=== PATIENT | female | born 1985 | race Two or more races ===

== ENCOUNTER → 2020-10-22 13:13 | Outpatient (BNVA) | payer OTHER, SELFPAY | PROVIDERS: Visit Provider Advanced Practice Midwife | DX: Z30.42 Encounter for surveillance of injectable contraceptive (principal) | CPT/HCPCS: 99211; J1050 ==

== ENCOUNTER 2020-10-23 08:00 | Outpatient (REF) | payer OTHER, SELFPAY ==
[2020-10-23 13:03] LABS: TSH reflex Free T4 0.36 mIU/mL (0.32-4.0)
== END 2020-10-23 08:01 | disposition home or self-care (01) ==
LOC: HO.LAB 08:00
PROVIDERS: Visit Provider Internal Medicine
DX: E03.9 Hypothyroidism, unspecified (principal)
CPT/HCPCS: 84443

== ENCOUNTER → 2020-10-23 11:50 | Outpatient (BNVA) | payer OTHER, SELFPAY | PROVIDERS: Visit Provider Obstetrics & Gynecology | DX: Z01.818 Encounter for other preprocedural examination (principal); E03.9 Hypothyroidism, unspecified; Z87.891 Personal history of nicotine dependence | CPT/HCPCS: 99212 ==

== ENCOUNTER 2020-11-01 06:07 | Day surgery (SDC) | payer OTHER, SELFPAY ==
[2020-10-26 15:02] VITALS: BMI 23.2
--- NOTE | 2020-10-31 10:45 | P.CONAN_ITS ---
Documented by User: Barbara Batista 10/31/20 10:47 HPI - Anesthesia Eval Consult details Narrative: 35yo F for Salpingectomy Laproscopic PMFSH Past Medical History Medical History (Updated 11/01/20 @ 07:27 by Jada Gaspar) Arthritis Bilateral carpal tunnel syndrome Depression with anxiety Glaucoma Hyperthyroidism Migraine headache Surgical History Surgical History H/O removal of cyst History of appendectomy History of delivery Social History Social History Smoking Status: Current every day smoker Tobacco Type: Cigarette Packs Per Day: 0.5 Cigarettes Per Day: 10.0 Years Smoked: 15 Smoked in Last 30 Days: Yes Patient Interested in Nicotine Replacement: No Patient Given Instructions on How to Stop Smoking: Yes Date Education Initiated: 10/26/20 Use of substances other than those prescribed or required for medical reasons: No Have you been hit, kicked, punched, or otherwise hurt by someone within the past year? If so, by whom?: No Advance Directives: No Advance Directives Information Provided: No Advance Directives on File: No Sexual orientation: Straight/Heterosexual Gender identity: female Meds Allergies Allergy/AdvReac Type Severity Reaction Status Date / Time No Known Allergies Allergy Unknown FG Verified 10/26/20 15:01 Home Medications Medication Instructions Recorded Confirmed Type No Known Home Meds 10/26/20 10/26/20 History Exam Exam Date and Time: October 31, 2020 1045 Height,Weight and Vital Signs: Height 5 ft Weight 53.977 kg Pertinent Lab Results Pertinent Lab Results: Laboratory Tests 09/07/20 09/07/20 15:19 15:19 WBC 7.1 Hgb 10.9 L Hct 33.0 L Plt Count 301 Sodium 139 Potassium 4.5 Chloride 110 H Carbon Dioxide 25 BUN 19 H Creatinine 0.85 Assessment and Plan Assessment Anesthesia Assessment: Chart Reviewed Documented by User: Jada Gaspar 11/01/20 07:38 [facility] Past Medical History Medical History (Updated 11/01/20 @ 07:27 by Jada Gaspar) Arthritis Bilateral carpal tunnel syndrome Depression with anxiety Glaucoma Hyperthyroidism Migraine headache Family History Family history of problems with anesthesia: Yes Surgical History Surgical History H/O removal of cyst History of appendectomy History of delivery History of Problems with Anesthesia: No Social History Social History Smoking Status: Current every day smoker Tobacco Type: Cigarette Packs Per Day: 0.5 Cigarettes Per Day: 10.0 Years Smoked: 15 Smoked in Last 30 Days: Yes Patient Interested in Nicotine Replacement: No Patient Given Instructions on How to Stop Smoking: Yes Date Education Initiated: 10/26/20 Use of substances other than those prescribed or required for medical reasons: No Have you been hit, kicked, punched, or otherwise hurt by someone within the past year? If so, by whom?: No Advance Directives: No Advance Directives Information Provided: No Advance Directives on File: No Sexual orientation: Straight/Heterosexual Gender identity: female Meds Allergies Allergy/AdvReac Type Severity Reaction Status Date / Time No Known Allergies Allergy Unknown FG Verified 10/26/20 15:01 Home Medications Medication Instructions Recorded Confirmed Type No Known Home Meds 10/26/20 10/26/20 History Exam Height,Weight and Vital Signs: Vital Signs Temp Pulse Resp BP Pulse Ox 11/01/20 06:34 98.0 F 68 16 104/64 100 Pertinent Lab Results Pertinent Lab Results: Lab Results 11/01/20 Range/Units 06:20 Beta HCG, Quant < 2 mIU/mL Narrative Narrative: Earring left ear- patient unable to remove. Airway Mallampati Class: I TM Dist: >3cm Neck ROM: Full Heart: RRR Lungs: CTAB Assessment and Plan Assessment Anesthesia Assessment: Anesthesia Plan Discussed and Chart Reviewed Final Anesthetic Review NPO: Yes ASA Class: II Final Preanesthetic Review: No Changes in Pt Med Stat, Meds/Allgs Chart Reviewed, Consent Obtained/Reviewed and Anes Risks/Benef Reviewed Patient Risk: Low Procedure Risk: Intermediate Anesthetic Plan Anesthetic Plan: GA Disposition: Standard PACU
[2020-11-01] VITALS (10 sets, daily range): BP systolic 90–131; BP diastolic 53–86; PULSE 61–97; RESP 12–16; TEMP 36.7–37; O2SAT 99–100
[2020-11-01] MEDS: Lactated Ringers 1,000 ML 100 ML IVCONT (06:37)
[2020-11-01 06:54] LABS: HCG Quantitative < 2 mIU/mL
[2020-11-01] MEDS: Acetaminophen 325 MG TABLET 650 MG PO (07:03)
--- NOTE | 2020-11-01 07:45 | MHC.SHP ---
Pre-Procedural Eval Section A The patient is an INPATIENT: No Changes since office visit: No Cold of Flu in the past 2 weeks, No New Medical Problems, No Changes in Medication and No Patient answered all questions The History & Physical has been completed within 30 days and I have reviewed it.: Yes Section B Chief Complaint: permanent sterilization,bilat Allergies: Allergies Allergy/AdvReac Type Severity Reaction Status Date / Time No Known Allergies Allergy Unknown FG Verified 10/26/20 15:01 Plan Patient has been examined and remains a candidate for the planned procedure
--- NOTE | 2020-11-01 09:12 | W.PM.OPN ---
Operative Note Operative Note Date of Service: 11/01/20 Narrative: Ms. Abrams is a 35 year old who has completed her family planning and desires a permanent form of sterilization. Surgical Risks: The patient was informed of the risks and benefits of the procedure. Risks included but were not limited to bleeding, infection, injury to the vulva, vagina, or cervix, and uterine perforation. The patient was counseled on the risk of sterilization failure being about 1% on average. The patient was informed that in the event a occurs, the risk of ectopic is increased. The patient expressed understanding of the risks involved, all questions were answered, and the patient consented to the procedure. The patient had valid sterilization consent at the time of the procedure. The patient was taken to the operating room where a time out was performed to confirm correct patient and correct procedure. General anesthesia was established. The patient was then positioned on the operating table in the dorsal lithotomy position with the legs supported using stirrups. All pressure points were padded and a Simba hugger was placed to maintain control of core body temperature. The patient was then prepped and draped in the usual sterile fashion. A red rubber catheter was inserted and 50mL urine obtained. Attention was turned to the abdomen where a 5mm vertical supraumbilical incision was made. The 5mm trocar was introduced under direct visualization using the laparoscopy within the sleeve of the trocar. After intra-abdominal placement had been confirmed, the trocar was removed leaving the sleeve in place. The camera was introduced and pneumoperitoneum was established using carbon dioxide. Inspection of the abdominal cavity showed one anterior abdominal adhesion (likely to her scar) just to the left of midline. There was no evidence of injury to the bowel, bladder, or vasculature, and no other gross abnormalities were noted. Attention was turned to the pelvis. The patient was placed into Trendelenburg position. The fallopian tubes and ovaries were visualized bilaterally. On the left, the distal tube was adherent to the pelvic sidewall. There were no other abnormalities noted. A small incision was made in the midline approximately 2cm superior and medial to the left ASIS. A 5mm trocar was introduced through this incision under direct visualization with the laparoscope. The identical procedure was then performed on the right. The fallopian tubes were inspected bilaterally and the fimbriated ends of the fallopian tube were visualized bilaterally. The distal end of the left tube was grasped and lifted up and being careful to avoid the ovarian vessels, salpingectomy was performed after the distal end of the tube from the sidewall with the Ligasure device by walking the Ligasure device from the distal to the medial end of the tube, cauterizing and cutting, and from the uterus at the cornua. The tube was then removed through the trocar. The identical procedure was then performed on the right. The tubes were sent to pathology for analysis. The pneumoperitoneum was then evacuated. The laparoscope was removed and the trocar sleeves were removed. The skin incisions were closed using Dermabond. Good hemostasis was confirmed. The patient was transferred to the recovery room in stable condition. All needle, sponge, and instrument counts were noted to be correct x2 at the end of the procedure. EBL: 5mL
[2020-11-01] MEDS: oxyCODONE HCl Immed Release 5 MG TABLET PO (10:26)
--- NOTE | 2020-11-01 11:41 | HO.POSTANES ---
Post Anesthesia Evaluation Post Anesthesia Evaluation Vital Signs: Vital Signs Temp Pulse Resp BP Pulse Ox 11/01/20 11:18 98.6 F 62 16 90/53 L 100 11/01/20 10:47 61 16 104/59 L 99 11/01/20 10:17 80 16 117/70 100 11/01/20 10:03 16 109/74 100 11/01/20 09:48 76 16 126/79 100 11/01/20 09:33 79 16 126/84 100 11/01/20 09:28 79 16 122/75 100 11/01/20 09:23 89 16 131/86 100 11/01/20 09:18 98.6 F 97 12 130/82 100 11/01/20 06:34 98.0 F 68 16 104/64 100 Anesthesia: General Endotracheal-GETA Mental Status: Awake Pain Control: Satisfactory Nausea/Vomiting: None Hydration: Adequate Anesthesia-Related Issues: No Anes. Related Issues
== END 2020-11-01 12:00 | disposition home or self-care (01) ==
PROVIDERS: PCP Internal Medicine; Visit Provider Obstetrics & Gynecology
PROC: (CPT 58661; principal; 2020-11-01 07:30)
DX: Z30.2 Encounter for sterilization (principal); Z98.891 History of uterine scar from previous surgery; H40.9 Unspecified glaucoma; F17.210 Nicotine dependence, cigarettes, uncomplicated; Z79.899 Other long term (current) drug therapy
CPT/HCPCS: 58661; 84702; 88302; J1100; J1885; J2250; J2405; J2765; J3010

== ENCOUNTER → 2020-11-02 10:33 | Outpatient (BNVA) | payer OTHER, SELFPAY | PROVIDERS: PCP Internal Medicine; Referring Provider Internal Medicine; Visit Provider Internal Medicine Endocrinology, Diabetes & Metabolism | DX: E05.90 Thyrotoxicosis, unspecified without thyrotoxic crisis or storm (principal); R63.4 Abnormal weight loss | CPT/HCPCS: 99202 ==

== ENCOUNTER → 2020-11-12 08:38 | Outpatient (BNVA) | payer OTHER, SELFPAY | PROVIDERS: PCP Internal Medicine; Visit Provider Obstetrics & Gynecology | DX: Z76.89 Persons encountering health services in other specified circumstances (principal) ==

== ENCOUNTER → 2020-11-30 13:50 | Outpatient (BNVA) | payer OTHER, SELFPAY | PROVIDERS: PCP Internal Medicine; Visit Provider Obstetrics & Gynecology | DX: Z09 Encounter for follow-up examination after completed treatment for conditions other than malignant neoplasm (principal); Z98.890 Other specified postprocedural states | CPT/HCPCS: 99212 ==

== ENCOUNTER → 2020-12-19 10:07 | Outpatient (BNVA) | payer OTHER, SELFPAY | PROVIDERS: PCP Internal Medicine; Visit Provider Student in an Organized Health Care Education/Training Program | DX: M25.50 Pain in unspecified joint (principal) | CPT/HCPCS: 99212 ==

== ENCOUNTER 2021-01-04 11:45 | Outpatient (REF) | payer OTHER, SELFPAY ==
[2021-01-04 12:45] LABS: MANUAL DIFF FLAG NO
[2021-01-04 12:51] LABS: Basophils Absolute Auto 0.1 X10*3/uL (0.0-0.2); Eosinophils Absolute Auto 0.2 X10*3/uL (0.0-0.4); Eosinophils Percent Auto 2.6 % (0-4); Hematocrit 34.7 % (37-47); Hemoglobin 11.1 g/dl (12.0-16.0); Imm Gran Abs Auto 0.02 X10*3/uL (0.00-0.03); Imm Gran Pct Auto 0.3 % (0.0-0.4); Lymphocytes Percent Auto 33.8 % (20-40); Mean Corpuscular Hemoglobin 28.5 pg (27.0-33.0); Mean Corpuscular Volume 89.2 fL (80-98); Monocytes Absolute Auto 0.2 X10*3/uL (0.1-1.2); Monocytes Percent Auto 3.8 % (2-11); Neutrophils Absolute Auto 3.4 X10*3/uL (2.0-8.3); Neutrophils Percent Auto 58.5 % (45-73); Platelet Count 303 X10*3/uL (160-400); Red Blood Count 3.89 X10*6/uL (4.20-5.50); Red Cell Distribution Width 14.6 % (11.0-16.0); White Blood Count 5.8 X10*3/uL (4.8-10.8)
[2021-01-04 13:44] LABS: Alanine Aminotransferase 12 U/L (0-31); Albumin Level 4.5 g/dL (3.5-5.0); Alkaline Phosphatase 59 U/L (39-117); Anion Gap 10 (12-20); Aspartate Amino Transferase 13 U/L (5-31); Bilirubin Total 1.1 mg/dL (0.0-1.0); Blood Urea Nitrogen 17 mg/dL (9-16); Calcium 9.1 mg/dL (8.4-10.2); Carbon Dioxide 27 mmol/L (22-29); Chloride 109 mmol/L (96-108); Estimated Glomerular Filt Rate > 60; Glucose Random 92 mg/dL (60-115); Potassium 4.8 mmol/L (3.3-5.1); Sodium 141 mmol/L (135-145)
[2021-01-04 13:46] LABS: Thyroid Stimulating Hormone 0.23 uIU/mL (0.32-4.0)
[2021-01-04 13:49] LABS: Free T4 (Free Thyroxine) 0.79 ng/dL (0.71-1.85); Thyroid Stimulating Hormone 0.21 uIU/mL (0.32-4.0)
[2021-01-04 13:57] LABS: Rheumatoid Factor 15.7 IU/mL (<15.0)
[2021-01-04 14:13] LABS: Erythrocyte Sedimentation Rate 5 MM/HR (0-20)
[2021-01-05 03:37] LABS: Triiodothyronine T3 Total 66 ng/dL (76-181)
[2021-01-05 05:57] LABS: DHEA Sulfate 62 mcg/dL (23-266); Thyroglobulin Antibodies <1 IU/mL (< or = 1); Thyroid Peroxidase Antibodies <1 IU/mL (<9)
[2021-01-06 14:07] LABS: Anti Nuclear Antibody Screen NEGATIVE (NEGATIVE)
[2021-01-06 19:32] LABS: TS Negative Control Passed; TS Panel A 0; TS Panel B 0; TS Positive Control Passed; TSpotTB Negative (SeeBelow)
[2021-01-07 00:37] LABS: Cyclic Citrullinated Peptide <16 UNITS
[2021-01-10 11:41] LABS: Thyrotropin Receptor Antibody <1.00 IU/L (<=2.00)
[2021-01-12 16:11] LABS: Thyroid Stimulating Immunoglob <89 % baseline (<140)
== END 2021-01-04 11:46 | disposition home or self-care (01) ==
LOC: HO.LAB 11:45
PROVIDERS: Absent Provider Internal Medicine Endocrinology, Diabetes & Metabolism; PCP Internal Medicine; Referring Provider Internal Medicine Medical Oncology; Visit Provider Student in an Organized Health Care Education/Training Program
DX: M25.50 Pain in unspecified joint (principal); R63.4 Abnormal weight loss; M05.9 Rheumatoid arthritis with rheumatoid factor, unspecified; E05.90 Thyrotoxicosis, unspecified without thyrotoxic crisis or storm
CPT/HCPCS: 36415; 80053; 82533; 82627; 83520; 84439; 84443; 84445; 84480; 85025; 85652; 86038; 86039; 86140; 86200; 86376; 86431; 86481; 86800

== ENCOUNTER 2021-01-28 14:32 | Outpatient (REF) | payer OTHER, SELFPAY | END 2021-01-28 14:33 | disposition home or self-care (01) | LOC: HO.LAB 14:32 | PROVIDERS: Visit Provider Internal Medicine | DX: Z20.822 Contact with and (suspected) exposure to COVID-19 (principal) | CPT/HCPCS: 36415; C9803; U0003; U0005 ==

== ENCOUNTER 2021-01-28 16:03 | Outpatient (REF) | payer OTHER, SELFPAY ==
--- NOTE | ~2021-01-28 | XR_ITS ---
EXAMINATION: XR LUMBOSACRAL SPINE CLINICAL INFORMATION: Pain COMPARISON: 02/20/2016 TECHNIQUE: Three views of the lumbosacral spine. FINDINGS: The vertebral bodies and posterior elements are normal. The disc spaces are preserved and the vertebral alignment is normal. The sacroiliac joints are symmetric. The sacrum appears intact. The bowel gas pattern is unremarkable. The paraspinal soft tissues are normal. XR/XR lumbar spine 2-3V IMPRESSION: Unremarkable appearance of the lumbar spine.
--- NOTE | ~2021-01-28 | XR_ITS ---
EXAMINATION: XR PELVIS CLINICAL INFORMATION: Pain COMPARISON: 05/18/2017 TECHNIQUE: AP view of the pelvis. FINDINGS: No fracture or dislocation. The femoral heads are well-seated within their acetabula. The joint spaces are maintained. The pelvic rim is intact. The sacroiliac joints and pubic symphysis are intact. Phleboliths overlie the pelvis. The bowel gas pattern is unremarkable. XR/XR pelvis 1-2V IMPRESSION: Normal pelvis.
--- NOTE | ~2021-01-28 | XR_ITS ---
EXAMINATION: XR CERVICAL SPINE CLINICAL INFORMATION: Pain COMPARISON: 04/12/2020 TECHNIQUE: 3 views of the cervical spine were obtained. FINDINGS: There are no prevertebral soft tissue or bony abnormalities demonstrated. No compression fractures or subluxations are identified. Alignment is maintained at the atlanto-axial articulation. The disc spaces are preserved. No endplate changes are seen. The prevertebral soft tissues are normal. The lung apices are clear.. XR/XR cervical spine 2V IMPRESSION: Normal appearance of the cervical spine.
== END 2021-01-28 16:04 | disposition home or self-care (01) ==
LOC: HO.XRAY 16:03
PROVIDERS: PCP Internal Medicine; Visit Provider Student in an Organized Health Care Education/Training Program
DX: M54.2 Cervicalgia (principal); M54.5 Low back pain; R10.2 Pelvic and perineal pain
CPT/HCPCS: 72040; 72100; 72170

== ENCOUNTER 2021-02-07 19:29 | Emergency (ER) | payer OTHER, SELFPAY ==
[2021-02-07 19:39] VITALS: BP 99/55; PULSE 95; RESP 16; TEMP 36.8; O2SAT 100; BMI 27.3
--- NOTE | 2021-02-07 20:59 | ED.EYEPROB ---
HPI - Eye Problem General Chief complaint: Eye Problems Stated complaint: eye pain Source: patient Mode of arrival: ambulatory Limitations: no limitations History of Present Illness HPI Narrative: 35-year-old female with polyarthralgia and hyperthyroidism presents with left eye pain. Stated that pain started this morning, feels like that something is cutting the inside of her eye. She tried to look inside of her eye and used her finger tips to try to find a suspected foreign body. She does not report being exposed to debris that could have gotten into her eye. chief complaint: eye pain, eye redness and foreign body Onset (ago): day(s) (1) Onset description: awoke with symptoms Duration: constant Location: left eye Eye Symptoms: burning, redness, pain, foreign body sensation, itching and photophobia Place: home Mechanism: none Severity: severe Severity scale (1-10): 9 Associated symptoms: none Treatments Prior to Arrival: irrigated eye Related Data Patient tetanus UTD: No Home Medications Medication Instructions Recorded Confirmed No Known Home Meds 11/12/20 12/19/20 Allergies Allergy/AdvReac Type Severity Reaction Status Date / Time No Known Allergies Allergy Unknown FG Verified 02/07/21 19:39 Review of Systems Review of Systems: Constitutional: No Fever, No Chills ENT/Mouth: No Ear Pain, No Hoarseness, No sore throat Eyes: Positive left Eye Pain, No Swelling, positive Redness, suspicious of Foreign Body Cardiovascular: No Chest Pain, No SOB Respiratory: No Cough, No Dyspnea Gastrointestinal: No Nausea, No Vomiting, No Diarrhea, No abdominal Pain Genitourinary: No Dysuria, No Hematuria Musculoskeletal: No joint pain, No Myalgias, No Joint Swelling Skin: No Skin lacerations, No rash Neuro: No Weakness, No Numbness, No Paresthesias, No Loss of Consciousness, No Dizziness, No Headache Psych: No Anxiety/Panic, No Depression Heme/Lymph: no easy bruising, no Lymphadenopathy Endocrine: No Polyuria, No Polydipsia Yes all other systems are reviewed and are negative [facility] Past Medical History Source: old records reviewed Medical History (Updated 02/07/21 @ 21:50 by Gail Brown NP) Arthritis Bilateral carpal tunnel syndrome Depression with anxiety Glaucoma Hyperthyroidism Migraine headache Surgical History H/O removal of cyst History of appendectomy History of delivery Hx of tubal ligation Family History Family History Father No problems noted. Mother Stomach disorder Social History Social History Alcohol intake: never Smoking Status: Current every day smoker Tobacco Type: Cigarette Packs Per Day: 0.5 Cigarettes Per Day: 10.0 Years Smoked: 15 Smoked in Last 30 Days: No Use of substances other than those prescribed or required for medical reasons: No Advance Directives: No Advance Directives Information Provided: Yes Sexual orientation: Straight/Heterosexual Gender identity: female Physical Exam Vital Signs: Vital Signs: Last Vital Signs Temp 98.2 F 02/07/21 19:39 Pulse 95 02/07/21 19:39 Resp 16 02/07/21 19:39 BP 99/55 L 02/07/21 19:39 Pulse Ox 100 02/07/21 19:39 Body Mass Index 27.3 Appearance: Alert. Oriented X3. Moderate distress. Eyes: Pupils equal, round and reactive to light. ENT: Pharynx normal. Neck: Normal inspection. Neck supple. CVS: Normal heart rate and rhythm. Pulses normal. Respiratory: No respiratory distress. Breath sounds normal. Abdomen: Soft and nontender. Skin: Skin warm and dry. Normal skin color. Normal skin turgor. Extremities: No lower extremity edema. Neuro: No motor deficit. No sensory deficit. Eyes: Alignment and Position: alignment normal Periorbital: periorbital findings normal Eyelids: Yes eyelids normal Conjunctivae: conjunctival abnormal left (Erythema) Sclerae: sclerae normal Corneas: corneas abnormal on the left fluorescein used and abrasion; with no foreign body noted and fluorescein used Pupils: Equal, round and reactive pupils present and Pupil accommodation reflex normal EOM: EOMs intact bilaterally Direct Ophthalmoscopy: normal light reflex, no papilledema, fundi normal bilaterally and anterior chamber normal Neuro: Cranial nerves: Yes Equal, round and reactive pupils present Course Course Course Narrative: 35-year-old female presents with left eye pain and suspicion of foreign body. She has been using a gloved finger to try to ?fish? the object out of her eye. Has fluorescein uptake to the left cornea, consistent with corneal abrasion. She does not wear contact lenses, plan of care is for erythromycin eye ointment, update Tdap vaccine and to have patient follow-up with Ophthalmology as an outpatient. Patient verbalized understanding of and agrees plan of care discharge home. MDM - Eye Problem Differential Diagnosis Differential diagnosis: Likely corneal abrasion, conjunctivitis, acute iritis, hyphema, periorbital cellulitis and corneal ulcer Medical Records Attestation: I reviewed the patient's medical records. Lab Data Attestation: I reviewed the patient's lab results. Discharge Plan Discharge Clinical Impression: Corneal abrasion Qualifiers: Encounter type: initial encounter Laterality: left Qualified Code(s): S05.02XA - Injury of conjunctiva and corneal abrasion without foreign body, left eye, initial encounter Patient Disposition: Home, Self-Care Instructions: Corneal Abrasion (ED) Additional Instructions: You were evaluated for left eye pain. Eye examination indicates corneal abrasion to the left eye. Please follow-up with Ophthalmology, Dr Moses. Use erythromycin eye ointment every 4 hours while awake. Wash your hands before and after using this medication. Thank you for choosing this emergency department for evaluation. Please follow-up with primary care physician as needed. Return to the emergency department for any new, concerning, or worsening symptoms. Prescriptions: No Action No Known Home Meds RF: 0 Referrals: Ike Moses [Physician] - 2 days (Left corneal abrasion) Interventions: ED Discharge Assessment Last Done: 02/07/21 22:05 Discharge Date/Time: 02/07/21 22:07 Print Language: Indonesian
--- NOTE | 2021-02-07 21:12 | PC.NURSE ---
pt does not have glasses with her and she cannot see without her glasses.
[2021-02-07] MEDS: Tetracaine HCl/PF 0.5% Oph Sol 4 ML DROPS 3 DROP EYE-LEFT (21:15)
[2021-02-07] MEDS: Fluorescein Sodium STRIP 1 STRIP EYE-LEFT (21:15)
[2021-02-07] MEDS: Eye Irrigation Solution 118 ML IRRIG.SOLN 1 APPL EYE-LEFT (21:16)
[2021-02-07] MEDS: Erythromycin Base 0.5% Oph Oin 1 GM TUBE 1 CM EYE-LEFT (21:30)
== END 2021-02-07 22:07 | disposition home or self-care (01) ==
PROVIDERS: Emergency Provider Internal Medicine; PCP Internal Medicine
DX: S05.02XA Injury of conjunctiva and corneal abrasion without foreign body, left eye, initial encounter (principal); H57.12 Ocular pain, left eye; F17.210 Nicotine dependence, cigarettes, uncomplicated; X58.XXXA Exposure to other specified factors, initial encounter; Y93.9 Activity, unspecified; Y92.009 Unspecified place in unspecified non-institutional (private) residence as the place of occurrence of the external cause; Y99.9 Unspecified external cause status; Z71.6 Tobacco abuse counseling
CPT/HCPCS: 90471; 90715; 99284

== ENCOUNTER 2021-08-19 05:35 | Emergency (ER) | payer OTHER, SELFPAY ==
[2021-08-19 05:39] VITALS: BP 112/62; PULSE 89; RESP 18; TEMP 36.7; O2SAT 98; BMI 29.2
--- NOTE | 2021-08-19 06:54 | ED.GENADULT ---
HPI - General Adult General Chief complaint: General Medical Stated complaint: Congested/Bodyaches/Sore throat Time Seen by Provider: 08/19/21 06:54 Source: patient Mode of arrival: ambulatory Limitations: no limitations History of Present Illness complaint: sore throat Onset (ago): day(s) (1) Location: mouth Severity: mild Quality: aching Pain Consistency: constant Relieving factors: none Exacerbating factors: other (swallowing) Associated symptoms: loss of appetite Treatments prior to arrival: none Related Data Home Medications Medication Instructions Recorded Confirmed No Known Home Meds 11/12/20 12/19/20 Allergies Allergy/AdvReac Type Severity Reaction Status Date / Time No Known Allergies Allergy Unknown FG Verified 02/07/21 19:39 Review of Systems Review of Systems: Constitutional : No Fever, No Chills ENT/Mouth : pos sore throat, No Rhinorrhea Eyes: No Eye Pain, No Swelling, No Redness Cardiovascular : No Chest Pain, No SOB Respiratory : No Cough, No Sputum, No Wheezing Gastrointestinal : No Nausea, No Vomiting, No Diarrhea Genitourinary : No Dysuria, No Urinary Frequency, No Hematuria, Musculoskeletal : No joint pain, No Myalgias, No Joint Swelling PMFSH Past Medical History Attestation statement: The following information was validated with the patient. Medical History Arthritis Bilateral carpal tunnel syndrome Depression with anxiety Glaucoma Hyperthyroidism Migraine headache Surgical History H/O removal of cyst History of appendectomy History of delivery Hx of tubal ligation Family History Family History Father No problems noted. Mother Stomach disorder Social History Social History Alcohol intake: never Patient Tobacco Use Status: Never used Tobacco Cigarette Packs Per Day: 0.5 Cigarettes Per Day: 10.0 Years Smoked: 15 Use of substances other than those prescribed or required for medical reasons: No Advance Directives: No Advance Directives Information Provided: No Patient : No Sexual orientation: Straight/Heterosexual Gender identity: Female Physical Exam Vital Signs: Vital Signs: Last Vital Signs Temp 98.1 F 08/19/21 05:39 Pulse 89 08/19/21 05:39 Resp 18 08/19/21 05:39 BP 112/62 08/19/21 05:39 Pulse Ox 98 08/19/21 05:39 Body Mass Index 29.2 Appearance: Alert. Oriented X3. No acute distress. Eyes: Pupils equal, round and reactive to light. ENT: Pharynx normal. Neck: Normal inspection. Neck supple. CVS: Normal heart rate and rhythm. Pulses normal. Respiratory: No respiratory distress. Breath sounds normal. Abdomen: Soft and nontender. Skin: Skin warm and dry. Normal skin color. Extremities: No lower extremity edema. Neuro: Oriented X 3. No motor deficit. No sensory deficit. Medical Decision Making MDM Narrative Medical decision making narrative: 36 yo female otherwise healthy here with URI symptoms - not toxic, well hydrated, normal VS - COVID swab and send home with supportive care Lab Data Labs: Lab Results 08/19/21 Range/Units 06:30 COVID-19 ([facility]) Negative (Negative) COVID-19 Clin Com See Note Discharge Plan Discharge Clinical Impression: Acute viral syndrome Patient Disposition: Home, Self-Care Instructions: Viral Syndrome (ED) Additional Instructions: return to ED for any worsening symptoms or concerns NEGATIVE FOR COVID Prescriptions: No Action No Known Home Meds RF: 0 Referrals: Stephanie Lord MD [Primary Care Provider] - 2 days (if not better) Stand Alone Forms: Work/School Release
[2021-08-19 07:06] LABS: COVID-19 Test Negative (Negative); IDNOW Serial# 9DD0AD1C
== END 2021-08-19 07:47 | disposition home or self-care (01) ==
PROVIDERS: Emergency Provider Emergency Medicine; PCP Internal Medicine
DX: B34.9 Viral infection, unspecified (principal); M79.10 Myalgia, unspecified site; F17.210 Nicotine dependence, cigarettes, uncomplicated; Z71.6 Tobacco abuse counseling; Z20.822 Contact with and (suspected) exposure to COVID-19; Z79.899 Other long term (current) drug therapy
CPT/HCPCS: 36415; 87635; 99283; 99284

== ENCOUNTER 2022-01-01 17:43 | Emergency (ER) | payer OTHER, SELFPAY ==
--- NOTE | ~2022-01-01 | XR_ITS ---
EXAMINATION: XR lumbar spine 2-3V CLINICAL INFORMATION: Reason for Exam fall, pain COMPARISON: Lumbar spine radiographs 01/28/2021 TECHNIQUE: 3 views of the lumbar spine XR/XR lumbar spine 2-3V FINDINGS/IMPRESSION: 5 nonrib-bearing lumbar-type vertebral bodies. Vertebral body heights are maintained. Mild levoconvex curvature of the lumbar spine. Disc space heights are maintained. Paravertebral soft tissues are unremarkable.
[2022-01-01 18:16] VITALS: BP 130/91; PULSE 110; RESP 19; TEMP 36.6; O2SAT 99; BMI 32.2
--- NOTE | 2022-01-01 19:00 | ED.BACK ---
HPI - Back Pain/Injury General Chief Complaint: Back Pain/Injury Stated Complaint: fall/ back pain Time Seen by Provider: 01/01/22 18:22 Source: patient Mode of arrival: ambulatory Limitations: no limitations History of Present Illness HPI Narrative: 36-year-old female with a history of hyperthyroidism, migraine history here with reports of low back pain after a slip and fall on Thursday. Patient reports she landed directly on her back. She has been taking Motrin having continued pain. Patient reports pain radiates the bilateral thighs. She has no associated numbness, tingling. No saddle anesthesia. No bowel or bladder incontinence. No fevers or chills. The patient is ambulatory. Patient denies any head strike during his fall. No loss of consciousness during the fall. Patient reports for the last 2-3 days she has also had generalized headache that feels typical for her migraines with associated photophobia and nausea. No vomiting, diarrhea or neck pain. Related Data Previous Rx's Medication Instructions Recorded doxycycline hyclate 100 mg tablet 100 mg PO BID 14 Days #28 tab 11/14/21 bhzcutrand-dybktsroogyup-exixpfod 1 cap PO Q6H PRN #10 cap 01/01/22 50 mg-300 mg-40 mg capsule (Fioricet) cyclobenzaprine 10 mg tablet 10 mg PO TID PRN #10 tab 01/01/22 ketorolac 10 mg tablet 10 mg PO Q8H PRN #10 tab 01/01/22 lidocaine 5 % topical patch 1 patch TOPICAL DAILY #15 ea 01/01/22 (Lidoderm) Allergies Allergy/AdvReac Type Severity Reaction Status Date / Time No Known Allergies Allergy Unknown FG Verified 11/14/21 15:18 Review of Systems Review of Systems: Yes all other systems are reviewed and are negative Constitutional: Constitutional: Reports no additional constitutional complaints, Denies body ache(s), Denies chills, Denies fever(s), Reports headache(s) and Denies weakness Eyes: Eyes: Reports no additional eye complaints, Denies change in vision and Reports photophobia ENT: Reports system reviewed and no additional complaints, except as documented, Denies dizziness, Reports headache(s), Denies nasal congestion, Denies nasal discharge and Denies neck pain Cardiovascular: Cardiovascular: Reports no additional cardiovascular complaints, Denies chest pain, Denies leg edema and Denies dyspnea Respiratory: Respiratory: Reports no additional respiratory complaints, Denies cough and Denies dyspnea Gastrointestinal: Gastrointestinal: Reports no additional gastrointestinal complaints, Denies abdominal pain, Denies diarrhea, Denies nausea and Denies vomiting Genitourinary: Genitourinary: Reports no additional female genitourinary complaints and Denies urinary incontinence Musculoskeletal: Musculoskeletal: Reports no additional musculoskeletal complaints, Reports back pain, Denies arthralgias, Denies joint swelling, Denies neck pain, Denies numbness and Denies tingling Integumentary/Breasts: Skin/Breast: Reports system reviewed and no additional complaints, except as docu and Denies rash Neurologic: Reports system reviewed and no additional complaints, except as documented, Denies Abnormal speech present, Denies dizziness, Reports headache(s), Denies numbness, Denies tingling and Denies weakness PMFSH Past Medical History Attestation statement: The following information was validated with the patient. Source: old records reviewed and nursing notes reviewed Medical History Arthritis Bilateral carpal tunnel syndrome Chronic fatigue Depression with anxiety Glaucoma Hyperthyroidism Migraine headache Right shoulder pain Surgical History H/O removal of cyst History of appendectomy History of delivery Hx of tubal ligation Family History Family History Father No problems noted. Mother Stomach disorder Social History Social History Housing: Apartment Alcohol intake: never Patient Tobacco Use Status: Current everyday Tobacco user Tobacco use type: Cigarette Cigarettes Per Day: 3 Years Smoked: 15 e-Cigarette/Vaping Use: Never Used Second Hand Smoke Exposure: No Advance Directives: No service: No Current occupational status: employed Current occupational exposures/hazards: No Sexual orientation: Straight/Heterosexual Gender identity: Female Physical Exam Vital Signs: Vital Signs: Last Vital Signs Temp 98 F 01/01/22 18:16 Pulse 110 H 01/01/22 18:16 Resp 19 01/01/22 18:16 BP 130/91 H 01/01/22 18:16 Pulse Ox 99 01/01/22 18:16 BMI result Body Mass Index 32.2 Const: General: cooperative, healthy appearing, comfortable and no acute distress Orientation/consciousness: patient oriented x3 Limitations: no limitations HENMT: Head: Yes normal to inspection Ears: hearing grossly normal bilaterally and TM's normal bilaterally General nose exam: Normal external nose present Face and sinus: Yes normal facial exam Mouth: Normal oral and palatal mucosa present Throat: Yes posterior oropharynx normal, Yes tonsils normal and Yes uvula midline Eyes: General: appearance normal, both eyes and all related structures Pupils: Equal, round and reactive pupils present Direct Ophthalmoscopy: photophobia Neck: Neck: Yes normal visual inspection and Yes full ROM Chest: Chest palpation & inspection: normal inspection of the chest Resp: Effort & Inspection: normal respiratory effort Auscultation: clear to auscultation bilaterally Cardio: Rate: regular rate Rhythm: regular rhythm Peripheral pulses: Peripheral pulses 2+ throughout GI: Inspection: Yes normal to inspection Palpation (GI): Soft to palpation and nontender Auscultation: normal bowel sounds : General: Yes no CVA tenderness Back/Spine/Pelvis: Other: midline lumbar tenderness with no step offs or deformities. palpable muscle spasm lumbar soft tissue bilaterally. Back: no CVA tenderness Thoracic/Lumbar Spine: thoracic and lumbar spine normal to inspection Skin: General skin exam: no rashes or lesions noted Neuro: General: patient oriented x3, moves all extremities, no focal motor deficits and normal sensation to monofilament Cranial nerves: Yes CN's II-XII intact bilaterally, Yes Equal, round and reactive pupils present, Yes Bilaterally intact EOM present, Yes Nystagmus not present, Yes Normal facial strength present and Yes Midline tongue present Cognition (Neuro): normal cognition Speech: No Abnormal speech present Gait exam (Neuro): Normal gait present Motor exam (neuro): 5/5 motor strength present throughout Sensory Exam: Normal double simultaneous stimulation for sensation Extrem: General: Yes normal to inspection Course Course Course Narrative: 36-year-old female here with reports of low back pain after slip and fall on Thursday. No neurological deficits or red flag symptoms. The patient does have midline tenderness of will check x-rays. Will provide Toradol IM for pain. Patient also complaining of generalized head is with photophobia and nausea with a history of migraines and this feels very similar to her previous migraines. Will give p.o. fiorcet and reassess 2100-pain is resolved. Patient is feeling improved. Her x-ray show no bony abnormality. Recommend patient follow-up with primary care doctor in 1 week for persistent pain for any additional imaging that may be required. Reviewed worrisome signs and symptoms of when to return to the emergency department. Comfortable with discharge home MDM - Back Pain/Injury MDM Narrative Medical decision making narrative: Less likely sah gradual onset of symptoms with a normal neurological exam and improving symptoms with medication here Less likely meningitis with no fever or neck pain Less likely epidural abscess with no history of fever, no history of IV drug abuse or immunocompromised state Less likely cauda equina with no red flag symptoms such as anesthesia or incontinence Medical Records Attestation: I reviewed the patient's medical records. Lab Data Attestation: I reviewed the patient's lab results. Imaging Data lumbar xray: Attestation: I personally reviewed and interpreted this imaging study as follows: Radiologist's impression: FINDINGS/IMPRESSION: ? 5 nonrib-bearing lumbar-type vertebral bodies. ? Vertebral body heights are maintained. Mild levoconvex curvature of the lumbar spine. ? Disc space heights are maintained. ? Paravertebral soft tissues are unremarkable. ? Discharge Plan Discharge Clinical Impression: Strain of lumbar region, Migraine Patient Disposition: Home, Self-Care Additional Instructions: Heat or ice Gentle stretching No heavy lifting or bending Follow-up with primary care doctor within 1 week for persistent pain as you may need an MRI Return for incontinence, fever, numbness in the groin Prescriptions: New ketorolac 10 mg tablet 10 mg PO Q8H PRN (Reason: pain) Qty: 10 0RF cyclobenzaprine 10 mg tablet 10 mg PO TID PRN (Reason: muscle spasm) Qty: 10 0RF lidocaine [Lidoderm] 5 % adhesive patch,medicated 1 patch topical DAILY Qty: 15 0RF Rx Instructions: leave on most painful area for up to 12 hrs jopqstjfqx-zjeploopcuqmd-hlyt [Fioricet] 50-300-40 mg capsule 1 cap PO Q6H PRN (Reason: pain) Qty: 10 0RF No Action doxycycline hyclate 100 mg tablet 100 mg PO BID 14 Days Qty: 28 0RF Referrals: Stephanie Lord MD [Primary Care Provider] - 1 week Stand Alone Forms: Work/School Release
[2022-01-01] MEDS: Ketorolac Tromethamine 60 MG/2 ML VIAL IM (19:28)
[2022-01-01] MEDS: Butalb/Acetamin/Caff 50/325/40 TABLET 2 TAB PO (19:28)
== END 2022-01-01 21:43 | disposition home or self-care (01) ==
PROVIDERS: Emergency Provider Emergency Medicine; PCP Internal Medicine
DX: S39.012A Strain of muscle, fascia and tendon of lower back, initial encounter (principal); W01.0XXA Fall on same level from slipping, tripping and stumbling without subsequent striking against object, initial encounter; G43.909 Migraine, unspecified, not intractable, without status migrainosus; F17.200 Nicotine dependence, unspecified, uncomplicated; Y93.9 Activity, unspecified; Y92.9 Unspecified place or not applicable; Y99.9 Unspecified external cause status
CPT/HCPCS: 72100; 96372; 99284; J1885

== ENCOUNTER 2022-08-27 13:37 | Outpatient (REF) | payer OTHER, SELFPAY ==
[2022-08-28 02:52] LABS: CT PCR NOT DETECTED (Not Detect.); NG PCR NOT DETECTED (Not Detect.)
[2022-08-28 13:29] LABS: BV Int Neg Control Negative (Negative); BV Int Pos Control Positive (Positive)
== END 2022-08-27 13:38 | disposition home or self-care (01) ==
LOC: HO.LNP 13:37
PROVIDERS: Visit Provider Advanced Practice Midwife
DX: N89.8 Other specified noninflammatory disorders of vagina (principal); Z20.2 Contact with and (suspected) exposure to infections with a predominantly sexual mode of transmission
CPT/HCPCS: 87480; 87491; 87510; 87591; 87660

== ENCOUNTER 2022-08-29 12:56 | Outpatient (REF) | payer OTHER, SELFPAY ==
--- NOTE | ~2022-08-29 | MM_ITS ---
EXAMINATION: MM DIAGNOSTIC DIGITAL BREAST TOMOSYNTHESIS, BILATERAL US DIAGNOSTIC ULTRASOUND BREAST, BILATERAL CLINICAL INFORMATION: 37-year-old female with bilateral areas of palpable fullness and mastodynia, right 4:00-6:00 and left 6:00-8:00. No prior breast imaging. No discharge. No erythema. No known family history breast cancer. The lifetime risk of breast cancer based on the Tyrer-Cuzick Model is 8%. COMPARISON: None (current study represents initial baseline exam). TECHNIQUE: Digital breast tomosynthesis is performed in both the craniocaudal and mediolateral oblique views along with computer-aided detection (CAD). Synthesized 2D images are generated from the tomosynthesis. Ultrasound bilateral breasts is targeted to the areas of clinical concern. Grayscale imaging and color Doppler are performed without and with harmonics. Patient is able to point areas of concern at time of imaging. FINDINGS: There are scattered areas of fibroglandular density (ACR BI-RADS breast composition Category b). There are no significant masses, abnormal calcifications, or other abnormalities. There is no architectural abnormality. The axilla and skin contours are unremarkable. No skin thickening or coarsening of the Willie's ligaments. Ultrasound bilateral breasts show no cystic or solid mass, architectural abnormality, or focal duct ectasia. No skin thickening or edema tracking in soft tissue planes. No focal hyperemia. Results are discussed with the patient at time of visit. MM/MM tomosynthesis diagnostic BI IMPRESSION: -No mammographic evidence of malignancy or inflammatory changes. -Unremarkable bilateral breast ultrasound. ASSESSMENT: BI-RADS 1: Negative RECOMMENDATION: 1. Patient should be managed based on the clinical impression. If there remains a clinically palpable concern, further evaluation may be considered with surgical consult. Decision to proceed with biopsy should be based on clinical grounds and degree of clinical concern. 2. Otherwise, routine annual screening mammography, beginning age 40, or earlier as clinical risk factors warrant. This patient's information was entered into a reminder system with a target due date for their next mammogram.
== END 2022-08-29 12:57 | disposition home or self-care (01) ==
LOC: HO.MAMMO 12:56
PROVIDERS: Absent Provider Advanced Practice Midwife; PCP Internal Medicine; Visit Provider Internal Medicine
DX: N64.4 Mastodynia (principal); N63.15 Unspecified lump in the right breast, overlapping quadrants; N63.25 Unspecified lump in the left breast, overlapping quadrants
CPT/HCPCS: 76642; 77062; 77066

== ENCOUNTER → 2022-09-22 11:47 | Outpatient (BNVA) | payer OTHER, SELFPAY | PROVIDERS: PCP Internal Medicine; Visit Provider Advanced Practice Midwife | DX: N64.4 Mastodynia (principal); Z71.2 Person consulting for explanation of examination or test findings | CPT/HCPCS: 99212 ==

== ENCOUNTER 2023-01-07 13:50 | Outpatient (REF) | payer OTHER, SELFPAY ==
--- NOTE | ~2023-01-07 | US_ITS ---
EXAMINATION: US THYROID CLINICAL INFORMATION: Nontoxic multinodular goiter. COMPARISON: None. TECHNIQUE: Linear transducer grayscale and color Doppler examination with attention to the region of the thyroid. FINDINGS: SIZE: Measurements of the thyroid lobes and nodules are given in sagittal, anteroposterior and transverse dimensions respectively. Right Thyroid Lobe: 4.3 x 0.7 x 1.6 cm, volume 2.5 mL. Parenchyma: The gland echotexture is homogeneous. Thyroid vascularity is normal. Left Thyroid Lobe: 4.1 x 0.8 x 1.5 cm, volume 2.6 mL. Parenchyma: The gland echotexture is homogeneous. Thyroid vascularity is normal. Isthmus: 0.2 cm in maximum AP dimension. Estimated total number of nodules greater than or equal to 1 cm: 0. Resource Teacher nodules are described as follows: NODES: No lymphadenopathy is seen in the tissue surrounding the thyroid gland. A single 1.8 x 0.3 x 0.3 lymph node is seen on the right. US/US thyroid IMPRESSION: Normal study. ACR TI-RADS RECOMMENDATION REFERENCE: Ultrasound-guided fine-needle aspiration, follow up ultrasound, no further follow up. * TR1 (0 point) and TR2 (2 points): No FNA or follow up. * TR3 (3 points): FNA if more than or equal to 2.5 cm in maximum dimension, followup ultrasound in 1, 3 and 5 years if 1.5 to 2.4 cm in maximum dimension. * TR4 (4-6 points): FNA if more than or equal to 1.5 cm in maximum dimension, followup ultrasound in 1, 2, 3 and 5 years if 1 to 1.4 cm in maximum dimension. * TR5 (more than or equal to 7 points): FNA if more than or equal to 1 cm in maximum dimension, followup ultrasound every year for 5 years if 0.5 to 0.9 cm in maximum dimension. * TR3, TR4 or TR5 nodules that are below the size threshold for followup receive no follow up.
== END 2023-01-07 13:51 | disposition home or self-care (01) ==
LOC: HO.US 13:50
PROVIDERS: PCP Internal Medicine; Visit Provider Internal Medicine
DX: E04.9 Nontoxic goiter, unspecified (principal)
CPT/HCPCS: 76536

== ENCOUNTER 2023-01-14 08:32 | Outpatient (REF) | payer OTHER, SELFPAY ==
[2023-01-14 08:48] LABS: MANUAL DIFF FLAG NO
[2023-01-14 09:02] LABS: Basophils Absolute Auto 0.1 X10*3/uL (0.0-0.2); Basophils Percent Auto 0.9 % (0-2); Eosinophils Absolute Auto 0.1 X10*3/uL (0.0-0.4); Eosinophils Percent Auto 2.1 % (0-4); Hematocrit 40.8 % (37.0-47.0); Hemoglobin 13.8 g/dl (12.0-16.0); Imm Gran Abs Auto 0.01 X10*3/uL (0.00-0.03); Imm Gran Pct Auto 0.2 % (0.0-0.4); Lymphocytes Absolute Auto 2.1 X10*3/uL (1.2-4.9); Mean Corpuscular HGB Conc 33.8 g/dl (31.0-35.0); Mean Corpuscular Hemoglobin 31.7 pg (27.0-33.0); Mean Corpuscular Volume 93.8 fL (80.0-98.0); Mean Platelet Volume 9.4 fL (9.4-12.3); Monocytes Absolute Auto 0.3 X10*3/uL (0.1-1.2); Monocytes Percent Auto 4.7 % (2-11); Neutrophils Absolute Auto 3.2 x10*3/uL (2.0-8.3); Neutrophils Percent Auto 55.1 % (45-73); Platelet Count 249 X10*3/uL (160-400); Red Blood Count 4.35 X10*6/uL (4.20-5.50); Red Cell Distribution Width 12.6 % (11.0-16.0); White Blood Count 5.7 X10*3/uL (4.8-10.8)
[2023-01-14 09:39] LABS: Erythrocyte Sedimentation Rate 4 MM/HR (0-20)
[2023-01-14 10:04] LABS: Alanine Aminotransferase 16 U/L (0-31); Albumin Level 4.4 g/dL (3.5-5.0); Alkaline Phosphatase 47 U/L (39-117); Anion Gap 13 (12-20); Aspartate Amino Transferase 17 U/L (5-31); Bilirubin Total 1.9 mg/dL (0.0-1.0); Blood Urea Nitrogen 9 mg/dL (9-16); Calcium 9.1 mg/dL (8.4-10.2); Carbon Dioxide 27 mmol/L (22-29); Chloride 106 mmol/L (96-108); Cholesterol 156 mg/dL; Estimated Glomerular Filt Rate > 60; Glucose Fasting 99 mg/dL (60-99); HDL Cholesterol 63 mg/dL; LDL Cholesterol Calculated 83 mg/dl; Potassium 4.9 mmol/L (3.3-5.1); Sodium 141 mmol/L (135-145); Total Protein 6.8 g/dL (6.5-8.0); Triglycerides 53 mg/dL
[2023-01-14 10:34] LABS: Folate 7.9 ng/mL (> or = 4.0); Free T4 (Free Thyroxine) 0.81 ng/dL (0.71-1.85); Thyroid Stimulating Hormone 1.27 uIU/mL (0.32-4.0); Vitamin B12 399 pg/mL (200-900); Vitamin D 25-OH Total 14.5 ng/mL (>30)
[2023-01-16 13:08] LABS: Anti DNA DS Antibody <1 IU/mL
[2023-01-16 14:04] LABS: Thyroid Peroxidase Antibodies <1 IU/mL (<9)
[2023-01-16 15:04] LABS: Anti Nuclear Antibody Screen NEGATIVE (NEGATIVE)
[2023-01-17 14:28] LABS: CRP High Sensitivity 1.4 mg/L
[2023-01-19 16:44] LABS: Cyclic Citrullinated Peptide <16 UNITS
[2023-01-21 11:28] LABS: Thyroglobulin Antibodies <1 IU/mL (< or = 1)
== END 2023-01-14 08:33 | disposition home or self-care (01) ==
LOC: HO.LAB 08:32
PROVIDERS: Absent Provider Internal Medicine; PCP Internal Medicine; Visit Provider Advanced Practice Midwife
DX: Z00.00 Encounter for general adult medical examination without abnormal findings (principal); E05.90 Thyrotoxicosis, unspecified without thyrotoxic crisis or storm; E53.8 Deficiency of other specified B group vitamins; M25.50 Pain in unspecified joint; D64.9 Anemia, unspecified; E55.9 Vitamin D deficiency, unspecified; E78.5 Hyperlipidemia, unspecified
CPT/HCPCS: 36415; 80053; 80061; 82306; 82607; 82746; 84439; 84443; 85025; 85652; 86038; 86039; 86141; 86200; 86225; 86376; 86800; 99202

== ENCOUNTER 2023-01-14 09:31 | Outpatient (REF) | payer OTHER, SELFPAY ==
[2023-01-16 08:32] LABS: Triiodothyronine T3 Total 107 ng/dL (76-181)
[2023-01-20 06:58] LABS: Thyrotropin Receptor Antibody <1.00 IU/L (<=2.00)
[2023-01-20 15:14] LABS: Thyroid Stimulating Immunoglob <89 % baseline (<140)
== END 2023-01-14 09:32 | disposition home or self-care (01) ==
LOC: HO.10HDL 09:31
PROVIDERS: Visit Provider Internal Medicine
DX: E05.90 Thyrotoxicosis, unspecified without thyrotoxic crisis or storm (principal); M25.50 Pain in unspecified joint; D64.9 Anemia, unspecified
CPT/HCPCS: 36415; 83520; 84445; 84480

== ENCOUNTER 2023-04-06 10:37 | Outpatient (REF) | payer OTHER, SELFPAY ==
--- NOTE | ~2023-04-06 | XR_ITS ---
EXAMINATION: XR SHOULDER, RIGHT CLINICAL INFORMATION: Pain COMPARISON: None available. TECHNIQUE: 3 views of the right shoulder. FINDINGS: The bones and soft tissues are normal. No fracture. Glenohumeral and acromioclavicular alignment is anatomic with normal joint space. No abnormal soft tissue calcifications. XR/XR shoulder RT min 2V IMPRESSION: Normal right shoulder.
== END 2023-04-06 10:38 | disposition home or self-care (01) ==
LOC: HO.XRAY 10:37
PROVIDERS: PCP Internal Medicine; Visit Provider Internal Medicine
DX: M25.511 Pain in right shoulder (principal)
CPT/HCPCS: 73030

== ENCOUNTER 2023-04-11 08:58 | Emergency (ER) | payer OTHER, SELFPAY ==
--- NOTE | ~2023-04-11 | XR_ITS ---
EXAMINATION: XR SHOULDER AND CLAVICLE, RIGHT CLINICAL INFORMATION: Right shoulder pain. COMPARISON: None available. TECHNIQUE: AP external rotation, Grashey, scapular Y, and axillary views of the right shoulder. FINDINGS: The bones and soft tissues are normal. No fracture. Glenohumeral, sternoclavicular and acromioclavicular alignment is anatomic with normal joint space. No abnormal soft tissue calcifications. XR/XR clavicle RT IMPRESSION: Unremarkable right shoulder/clavicle.
--- NOTE | ~2023-04-11 | XR_ITS ---
EXAMINATION: XR SHOULDER AND CLAVICLE, RIGHT CLINICAL INFORMATION: Right shoulder pain. COMPARISON: None available. TECHNIQUE: AP external rotation, Grashey, scapular Y, and axillary views of the right shoulder. FINDINGS: The bones and soft tissues are normal. No fracture. Glenohumeral, sternoclavicular and acromioclavicular alignment is anatomic with normal joint space. No abnormal soft tissue calcifications. XR/XR shoulder RT min 2V IMPRESSION: Unremarkable right shoulder/clavicle.
[2023-04-11 09:13] VITALS: BP 126/77; PULSE 67; RESP 16; TEMP 36.7; O2SAT 99; BMI 30.1
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
[2023-04-11] MEDS: Lidocaine 4 % Patch ADH..PATCH 1 PATCH TRANSDERMA (10:10)
[2023-04-11] MEDS: Ketorolac Tromethamine 30 MG/ML VIAL IM (10:10)
== END 2023-04-11 10:26 | disposition home or self-care (01) ==
PROVIDERS: Emergency Provider Emergency Medicine Emergency Medical Services; PCP Internal Medicine
DX: S46.911A Strain of unspecified muscle, fascia and tendon at shoulder and upper arm level, right arm, initial encounter (principal); X50.9XXA Other and unspecified overexertion or strenuous movements or postures, initial encounter; F17.210 Nicotine dependence, cigarettes, uncomplicated; Y93.F9 Activity, other caregiving; Y92.099 Unspecified place in other non-institutional residence as the place of occurrence of the external cause; Y99.0 Civilian activity done for income or pay
CPT/HCPCS: 73000; 73030; 96372; 99284; J1885

== ENCOUNTER → 2023-04-27 12:31 | Outpatient (BNVA) | payer OTHER, SELFPAY | PROVIDERS: PCP Internal Medicine; Visit Provider Internal Medicine | DX: E05.90 Thyrotoxicosis, unspecified without thyrotoxic crisis or storm (principal) | CPT/HCPCS: 99212 ==

== ENCOUNTER → 2023-05-11 13:43 | Outpatient (BNVA) | payer OTHER, SELFPAY | PROVIDERS: PCP Internal Medicine; Visit Provider Physician Assistant | DX: S46.911A Strain of unspecified muscle, fascia and tendon at shoulder and upper arm level, right arm, initial encounter (principal); S46.819A Strain of other muscles, fascia and tendons at shoulder and upper arm level, unspecified arm, initial encounter | CPT/HCPCS: 99202 ==

== ENCOUNTER 2023-05-13 13:37 | Outpatient (REF) | payer OTHER, SELFPAY ==
[2023-05-13 16:38] LABS: Free T4 (Free Thyroxine) 0.85 ng/dL (0.71-1.85); Thyroid Stimulating Hormone 0.61 uIU/mL (0.32-4.0)
[2023-05-15 07:03] LABS: Triiodothyronine T3 Total 94 ng/dL (76-181)
== END 2023-05-13 13:38 | disposition home or self-care (01) ==
LOC: HO.LAB 13:37
PROVIDERS: PCP Student in an Organized Health Care Education/Training Program; Visit Provider Internal Medicine
DX: E05.90 Thyrotoxicosis, unspecified without thyrotoxic crisis or storm (principal)
CPT/HCPCS: 36415; 84439; 84443; 84480

== ENCOUNTER 2023-09-09 13:17 | Outpatient (REF) | payer OTHER, SELFPAY ==
[2023-09-09 18:00] LABS: CT PCR NOT DETECTED (Not Detect.); NG PCR NOT DETECTED (Not Detect.)
[2023-09-10 13:49] LABS: BV Int Neg Control Negative (Negative); BV Int Pos Control Positive (Positive)
[2023-09-11 22:48] LABS: HPV mRNA E6/E7 rflx Not Detected (Not Detected)
== END 2023-09-09 13:18 | disposition home or self-care (01) ==
LOC: HO.LNP 13:17
PROVIDERS: Visit Provider Advanced Practice Midwife
DX: Z01.419 Encounter for gynecological examination (general) (routine) without abnormal findings (principal); R10.2 Pelvic and perineal pain; N94.10 Unspecified dyspareunia; Z20.2 Contact with and (suspected) exposure to infections with a predominantly sexual mode of transmission
CPT/HCPCS: 0353U; 87480; 87510; 87624; 87660; 88142; 99395

== ENCOUNTER 2023-09-09 13:17 | Outpatient (AMB) | payer OTHER, SELFPAY ==
[2023-09-09 13:21] VITALS: BP 110/66; BMI 29.3
--- NOTE | 2023-09-09 13:21 | A.OFFVIS_ITS ---
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 Scribed for [facility] by Rand Johnston medical practice manager, on 09/09/2023 at 1:40 pm EST. Resources Representative Required: No Information Interpreted: non-clinical & clinical Director Of Employer Services: Director Of Employer Services Present (Aidyn) Allergies No Known Allergies Allergy (Unknown, Verified 09/09/23 13:25) FG Is last menstrual period known: Yes Last menstrual period: 09/03/23 Post menopausal: No HPI HPI Comments History of Present Illness Details She is a premenopausal woman presenting for annual exam. She admits to not eating healthy and tries to stay active with walking up and down the stairs at work. Currently sexually active. Regular monthly periods that last approximately 3d. Denies vaginal itching, odor, discharge and irritation. Reports pelvic cramping/ pain with intimacy for the past 6 months. Hx of BV. No dysuria/or frequency-only discomfort with a full bladder when emptying. STD screening and blood work offered; she accepts. Denies family hx of breast and colon cancer. Denies pain or issues with breast. Last pap smear 08/23/18. [facility] Medical History Dyspareunia, female Hyperthyroidism Chronic fatigue Right shoulder pain Hyperthyroidism Glaucoma Bilateral carpal tunnel syndrome Arthritis Depression with anxiety Migraine headache Surgical History Hx of tubal ligation History of delivery H/O removal of cyst History of appendectomy Family History Father No problems noted. Mother Stomach disorder Maternal Aunt Ovarian cancer Social History Housing: Apartment Alcohol intake: current Alcohol intake frequency: holidays/special occasions only Patient Tobacco Use Status: Current everyday Tobacco user Tobacco use type: Cigarette Cigarettes Per Day: 5 Years Smoked: 15 e-Cigarette/Vaping Use: Never Used Second Hand Smoke Exposure: No Use of substances other than those prescribed or required for medical reasons: Yes Substance Use Type: Marijuana service: No Current occupational status: employed Current occupational exposures/hazards: No Sexual orientation: Straight/Heterosexual Gender identity: Female Cognitive needs: No Hearing needs: No Vision needs: Yes (glasses) Female Reproductive History Menstrual Age of Menarche: 14 Duration of menses: 3-5 days Date of last menstrual period: 09/03/23 control method: permanent sterilization Total pregnancies: 6 Full term: 2 Number of Living Children: 2 Ab spontaneous: 4 Date of last pap smear: 08/23/18 (negative) Physical Exam Vital Signs: Last Vital Signs BP 110/66 09/09/23 13:21 BMI result Body Mass Index 29.3 Const General: cooperative, healthy appearing, no acute distress, well developed and alert Orientation/consciousness: patient oriented x3 HEENT Head: Yes normal to inspection Eyes General: appearance normal, both eyes and all related structures Neck Neck: Yes normal visual inspection Thyroid: Thyroid normal Chest Chest palpation & inspection: normal inspection of the chest Breast/axilla inspection: normal inspection of the breasts (no puckering, dimpling, peau de orange, retraction, discharge, masses) Breast/axilla palpation: normal palpation of the breasts Resp Effort & Inspection: normal respiratory effort GI Inspection: Yes normal to inspection Palpation (GI): Soft to palpation (to palpation) Rectal Exam - Female: deferred Other: right sided uterine and ovary tenderness with exam General: Yes bladder normal to inspection External Female Exam: normal external appearance and normal appearance of the urethra Speculum Exam - Vagina: normal appearance of the vagina, normal palpation and normal vaginal discharge Speculum Exam - Cervix: normal appearance of the cervix and normal palpation Bimanual exam- vagina & uterus: normal palpation and normal palpation Bimanual Exam- Adnexa, other: normal adnexae and no masses Skin General skin exam: no rashes or lesions noted Neuro General: patient oriented x3 Cognition (Neuro): normal cognition Extrem General: Yes normal to inspection Psych Attitude: cooperative Thought process: Normal thought process present Assessment & Plan Assessment & Plan (1) Encounter for well woman exam: Code(s): Z01.419 - Encounter for gynecological examination (general) (routine) without abnormal findings Plan: Discussed: Current recommendations for pap smears per ASCCP guidelines. Breast awareness and periodic self breast exams. Maintaining a healthy lifestyle including a well balanced diet and routine exercise. Encouraged to use condoms for STD and prevention. Encouraged patient to sign up for patient portal. All of her questions and concerns were addressed to the best of my ability. RTO in one year for AG. (2) Pelvic pain: Code(s): R10.2 - Pelvic and perineal pain Plan: BV testing and GC/CT panel today. STD blood work ordered. Await results and treat accordingly. Rx sent to pharmacy. (3) Dyspareunia, female: Code(s): N94.10 - Unspecified dyspareunia Plan: Pelvic US ordered. Follow up in person for results. No intimacy until results are reviewed. Orders: Orders Hepatitis B Core Antibody Today Z20.2 - Contact with and (suspected) exposure to infections with a predominantly sexual mode of transmission HIV Ab/Ag Today Z20.2 - Contact with and (suspected) exposure to infections with a predominantly sexual mode of transmission Syphilis Screen Today Z20.2 - Contact with and (suspected) exposure to infections with a predominantly sexual mode of transmission US pelvic and transvaginal Today N94.10 - Unspecified dyspareunia, R10.2 - Pelvic and perineal pain Bacterial Vaginosis Panel Today R10.2 - Pelvic and perineal pain CT NG by PCR Today R10.2 - Pelvic and perineal pain Hepatitis C Antibody Today Z20.2 - Contact with and (suspected) exposure to infections with a predominantly sexual mode of transmission HCG Quantitative Today N94.10 - Unspecified dyspareunia, R10.2 - Pelvic and perineal pain UA CC w/rflx Micro + Cult Today N94.10 - Unspecified dyspareunia, R10.2 - Pelvic and perineal pain Pap Smear Today Z12.4 - Encounter for screening for malignant neoplasm of cervix Medications: New doxycycline hyclate 100 mg PO BID 7 days 14 caps 0RF Coding Level of Care Code Est Pt Prev Care 18-39y(18965) Diagnoses Encounter for well woman exam Z01.419 Pelvic pain R10.2 Dyspareunia, female N94.10
== END 2023-09-09 14:10 | disposition home or self-care (01) ==
PROVIDERS: PCP Physician Assistant; Visit Provider Advanced Practice Midwife
DX: Z01.419 Encounter for gynecological examination (general) (routine) without abnormal findings (principal); R10.2 Pelvic and perineal pain; N94.10 Unspecified dyspareunia
CPT/HCPCS: 99395

== ENCOUNTER 2023-10-05 10:57 | Outpatient (REF) | payer OTHER, SELFPAY ==
--- NOTE | ~2023-10-05 | US_ITS ---
EXAMINATION: US PELVIS CLINICAL INFORMATION: Pelvic and perineal pain. Last menstrual period yesterday. Vaginal bleeding, menses. COMPARISON: Pelvic ultrasound 04/09/2020. TECHNIQUE: Transabdominal ultrasound images of the pelvis were obtained. The patient declined transvaginal ultrasound imaging. FINDINGS: The uterus is anteverted, heterogeneous and measures 9.7 x 3.4 x 4.0 cm. No discrete fibroids are identified. Limited visualization of the endometrium. The imaged segment of endometrium with thickness of 0.8 cm. No significant free fluid. Right ovary measures 2.7 x 2.2 x 2.3 cm, volume 7.1 mL. Right ovarian 1.5 x 1.2 x 1.5 cm complex cyst with diffuse internal echoes is difficult to characterize due to limited visualization. Left ovary measures 1.8 x 2.0 x 2.2 cm, volume 4.1 mL. The left ovary is grossly unremarkable, although visualization is limited due to bowel gas. US/US pelvic and transvaginal IMPRESSION: 1. Limited visualization. Imaged segment of endometrium with thickness of 0.8 cm. 2. Right ovarian 1.5 cm complex cyst is difficult to characterize due to limited visualization. 3. Patient declined transvaginal ultrasound images. Transvaginal ultrasound imaging recommended for further evaluation due to substantially limited visualization due to bowel gas.
[2023-10-05 12:08] LABS: HCG Quantitative < 2 mIU/mL
[2023-10-05 12:25] LABS: Syphilis Screen Nonreactive (Nonreactive)
[2023-10-05 12:27] LABS: HIV AB/AG Nonreactive (Nonreactive); HIV Num 1 0.08 S/CO (0.00-0.99); Hepatitis B Core Antibody Nonreactive (Nonreactive); ~HepC Num1 0.08 S/CO (0.00-0.79); ~Hepatitis C Antibody Nonreactive (Nonreactive)
== END 2023-10-05 10:58 | disposition home or self-care (01) ==
LOC: HO.US 10:57
PROVIDERS: PCP Internal Medicine; Visit Provider Advanced Practice Midwife
DX: Z11.4 Encounter for screening for human immunodeficiency virus [HIV] (principal); R10.2 Pelvic and perineal pain; N94.10 Unspecified dyspareunia; Z20.2 Contact with and (suspected) exposure to infections with a predominantly sexual mode of transmission
CPT/HCPCS: 36415; 76830; 76856; 84702; 86704; 86780; 86803; 87389

== ENCOUNTER 2023-10-19 09:15 | Outpatient (REF) | payer OTHER, SELFPAY ==
[2023-10-19 10:05] LABS: Appearance Urine Clear; Color Urine Yellow; Glucose Urine UA Negative (Negative); Leukocyte Esterase Urine Negative (Negative); Nitrite Urine Negative (Negative); Urine Blood Negative (Negative); Urine Ketones Negative (Negative); Urine Protein Negative (Neg-Trace)
== END 2023-10-19 09:16 | disposition home or self-care (01) ==
LOC: HO.LNP 09:15
PROVIDERS: Visit Provider Advanced Practice Midwife
DX: N94.10 Unspecified dyspareunia (principal); R10.2 Pelvic and perineal pain
CPT/HCPCS: 81003

== ENCOUNTER 2023-10-20 13:01 | Outpatient (AMB) | payer OTHER, SELFPAY ==
[2023-10-20 13:06] VITALS: BP 112/70; BMI 29.3
--- NOTE | 2023-10-20 13:06 | A.OFFVIS_ITS ---
Intake Vital Signs 10/20/23 13:06 Height 5 ft Weight 150 lb BMI 29.3 BP 112/70 Intake Visit Reasons: Ultrasound follow up Allergies doxycycline Allergy (Intermediate, Verified 10/20/23 13:12) Gastrointestinal Upset HPI HPI Comments History of Present Illness Details Patient is here today for her test results of her ultrasound, history of dyspareunia. Reports she is very tired today and has been for a long time. She has right lower pelvic pain. Reports a history of constipation and has not been taking her preventative measures to improve that lately. She denies any dysuria. She reports she has periods less than 28 days apart but greater than 21 days. And has cramping for the last 3 weeks. She denies any new intimate partners. [facility] Medical History Dyspareunia, female Hyperthyroidism Chronic fatigue Right shoulder pain Hyperthyroidism Glaucoma Bilateral carpal tunnel syndrome Arthritis Depression with anxiety Migraine headache Surgical History Hx of tubal ligation History of delivery H/O removal of cyst History of appendectomy Family History Father No problems noted. Mother Stomach disorder Maternal Aunt Ovarian cancer Social History Housing: Apartment Alcohol intake: current Alcohol intake frequency: holidays/special occasions only Patient Tobacco Use Status: Current everyday Tobacco user Tobacco use type: Cigarette Cigarettes Per Day: 3 Years Smoked: 15 e-Cigarette/Vaping Use: Never Used Second Hand Smoke Exposure: No Substance Use Type: Marijuana service: No Current occupational status: employed Current occupational exposures/hazards: No Sexual orientation: Straight/Heterosexual Gender identity: Female Cognitive needs: No Hearing needs: No Vision needs: Yes (glasses) Female Reproductive History Menstrual Age of Menarche: 14 Review of Systems Const All systems reviewed & are unremarkable except as noted in HPI and below Physical Exam Vital Signs: Last Vital Signs BP 112/70 10/20/23 13:06 BMI result Body Mass Index 29.3 Const General: cooperative, healthy appearing and no acute distress Orientation/consciousness: patient oriented x3 GI Inspection: Yes normal to inspection Palpation (GI): Soft to palpation and Other GI palpation findings present (Nontender) Rectal Exam - Female: visual inspection normal General: Yes bladder normal to palpation External Female Exam: normal appearance of the urethra Speculum Exam - Vagina: normal appearance of the vagina, normal palpation, normal vaginal discharge and abnormal vaginal discharge (white, frothy) Speculum Exam - Cervix: normal appearance of the cervix and normal palpation Bimanual exam- vagina & uterus: normal bimanual exam, normal palpation, uterine size normal, bladder normal to palpation, normal palpation, uterine shape normal and non-tender Bimanual Exam- Adnexa, other: normal adnexae Neuro General: patient oriented x3 Results Reviewed Results Reviewed: [address] [address] Ultrasound Report Signed Patient: Jacquelyn Abrams MR#: [id number] : 1985 ADM Date: 10/05/[address]: Marci Shankar CNM Ordering Physician: Marci Shankar CNM Date of Service: 10/05/23 Procedure(s): US pelvic and transvaginal Accession Number(s): [id number] cc: Marci Shankar CNM; Stephanie Lord MD~ EXAMINATION: US PELVIS CLINICAL INFORMATION: Pelvic and perineal pain. Last menstrual period yesterday. Vaginal bleeding, menses. COMPARISON: Pelvic ultrasound 04/09/2020. TECHNIQUE: Transabdominal ultrasound images of the pelvis were obtained. The patient declined transvaginal ultrasound imaging. FINDINGS: The uterus is anteverted, heterogeneous and measures 9.7 x 3.4 x 4.0 cm. No discrete fibroids are identified. Limited visualization of the endometrium. The imaged segment of endometrium with thickness of 0.8 cm. No significant free fluid. Right ovary measures 2.7 x 2.2 x 2.3 cm, volume 7.1 mL. Right ovarian 1.5 x 1.2 x 1.5 cm complex cyst with diffuse internal echoes is difficult to characterize due to limited visualization. Left ovary measures 1.8 x 2.0 x 2.2 cm, volume 4.1 mL. The left ovary is grossly unremarkable, although visualization is limited due to bowel gas. US/US pelvic and transvaginal IMPRESSION: 1. Limited visualization. Imaged segment of endometrium with thickness of 0.8 cm. 2. Right ovarian 1.5 cm complex cyst is difficult to characterize due to limited visualization. 3. Patient declined transvaginal ultrasound images. Transvaginal ultrasound imaging recommended for further evaluation due to substantially limited visualization due to bowel gas. Dictated By: Nieves Nova MD Assessment & Plan Assessment & Plan (1) Dyspareunia, female: Code(s): N94.10 - Unspecified dyspareunia (2) Pelvic pain: Code(s): R10.2 - Pelvic and perineal pain (3) Encounter to discuss test results: Code(s): Z71.2 - Person consulting for explanation of examination or test findings Plan Discussed ultrasound results. Plan for repeat ultrasound in 6 weeks due to the complex ovarian cysts on the right side. Pelvic rest, warnings. BV panel comp leted. Monitor menstrual cycle and reports bleeding if < 21 days apart. Discuss constipation prevention plan of care, to include increased fluid and fiber. Follow-up with Dr. Pleitez regarding her fatigue and low vitamin-D level. Return to the office after the next ultrasound for a follow-up. Orders: Orders Bacterial Vaginosis Panel Today B96.89 - Other specified bacterial agents as the cause of diseases classified elsewhere, N76.0 - Acute vaginitis, R10.2 - Pelvic and perineal pain US pelvic and transvaginal Today N83.299 - Other ovarian cyst, unspecified side Coding Level of Care Code Est Pt Level 3 (32270) Diagnoses Dyspareunia, female N94.10 Pelvic pain R10.2 Encounter to discuss test results Z71.2
== END 2023-10-20 13:33 | disposition home or self-care (01) ==
LOC: HO.HWS 13:01
PROVIDERS: PCP Internal Medicine; Visit Provider Advanced Practice Midwife
DX: N94.10 Unspecified dyspareunia (principal); R10.2 Pelvic and perineal pain; Z71.2 Person consulting for explanation of examination or test findings
CPT/HCPCS: 99213

== ENCOUNTER 2023-10-20 13:01 | Outpatient (REF) | payer OTHER, SELFPAY ==
[2023-10-21 13:21] LABS: BV Int Neg Control Negative (Negative); BV Int Pos Control Positive (Positive)
== END 2023-10-20 13:02 | disposition home or self-care (01) ==
LOC: HO.LAB 13:01
PROVIDERS: PCP Internal Medicine; Visit Provider Advanced Practice Midwife
DX: R10.2 Pelvic and perineal pain (principal); N94.10 Unspecified dyspareunia; N76.0 Acute vaginitis; B96.89 Other specified bacterial agents as the cause of diseases classified elsewhere
CPT/HCPCS: 87480; 87510; 87660; 99212

== ENCOUNTER 2023-10-20 14:11 | Outpatient (AMB) | payer OTHER, SELFPAY ==
[2023-10-20 14:19] VITALS: BP 120/70; PULSE 90; O2SAT 98; BMI 29.5
--- NOTE | 2023-10-20 14:19 | A.OFFPC_ITS ---
Vital Signs 10/20/23 14:19 Height 5 ft Weight 151 lb BMI 29.5 BP 120/70 Blood Pressure Location Lt brachial Position Sitting Pulse 90 Pulse Source Pulse Oximeter Pulse Oximetry (%) 98 Oxygen Delivery Method Room Air Intake Visit Reasons: Cyst On Buttocks Intake Note: Pt is here for Cyst on uterus. Maintenance Dispatcher Required: No Accompanied by: Self / Same As Patient Allergies doxycycline Allergy (Intermediate, Verified 10/20/23 14:26) Gastrointestinal Upset Medication List - Last Reconciled 10/20/23 by Dany Presley PA-C No Known Home Meds Tobacco use date assessed: 11/25/22 Dental Screening Dental Screen Date: 10/20/23 Did you have a dental visit in the last 12 months?: Yes Did you have a dental problem in the last 6 months where you did not have access to dental care?: No Was dental information given to patient?: Patient has dentist HPI Cyst On Buttocks HPI Details Patient is a 38-year-old female here today for a problem visit. Has multiple complaints today reports feeling very bloated in her abdomen, having trouble sleeping and has been very tired over the last 9 months. She does report having a low appetite due to her GI issues. She does report having history of gastric reflux is well. Patient recently got pelvic ultrasound showing->Limited visualization. Imaged segment of endometrium with thickness of 0.8 cm. Right ovarian 1.5 cm complex cyst is difficult to characterize due to limited visualization. A transvaginal ultrasound was recommended to evaluate this right ovarian cyst per [facility] Medical History Dyspareunia, female Hyperthyroidism Chronic fatigue Right shoulder pain Hyperthyroidism Glaucoma Bilateral carpal tunnel syndrome Arthritis Depression with anxiety Migraine headache Surgical History Hx of tubal ligation History of delivery H/O removal of cyst History of appendectomy Family History Father No problems noted. Mother Stomach disorder Maternal Aunt Ovarian cancer Social History Housing: Apartment Alcohol intake: current Alcohol intake frequency: holidays/special occasions only Patient Tobacco Use Status: Current everyday Tobacco user Tobacco use type: Cigarette Cigarettes Per Day: 3 Years Smoked: 15 e-Cigarette/Vaping Use: Never Used Second Hand Smoke Exposure: No Substance Use Type: Marijuana service: No Current occupational status: employed Current occupational exposures/hazards: No Sexual orientation: Straight/Heterosexual Gender identity: Female Cognitive needs: No Hearing needs: No Vision needs: Yes (glasses) Female Reproductive History Menstrual Age of Menarche: 14 Questionnaire Thrive Questionnaire Date Thrive assessed: 11/25/22 LONNIE-7 AMB Questionnaire LONNIE-7 Date LONNIE - 7 assessed: 11/25/22 Source: Developed by Drs. Constantino Apodaca, Kassy Friedman, Elian Jennings and colleagues, with an educational carlos from [employer]. Review of Systems Const Denies headache(s) Eyes Denies loss of vision ENT Denies vertigo, Denies dizziness, Denies headache(s) and Denies sore throat Card Denies chest pain, Denies leg edema and Denies lightheadedness Resp Denies cough, Denies hemoptysis and Denies wheezing GI Reports constipation and Reports heartburn Denies urinary frequency, Denies dysuria and Denies urinary urgency Musc Denies arthralgias, Denies joint swelling, Denies numbness and Denies tingling Neuro Denies Abnormal speech present, Denies behavioral changes, Denies vertigo, Denies dizziness, Denies headache(s), Denies loss of vision, Denies memory loss, Denies numbness and Denies tingling Psych Denies anxiety, Denies behavioral changes, Denies depression, Denies memory loss and Denies panic attacks Romario/Lymph Denies easy bleeding and Denies easy bruising Aller/Immun Denies wheezing Physical exam (Primary Care) Vital Signs: Last Vital Signs Pulse 90 10/20/23 14:19 BP 120/70 10/20/23 14:19 Pulse Ox 98 10/20/23 14:19 Oxygen Delivery Method Room Air 10/20/23 14:19 BMI result Body Mass Index 29.5 Tobacco/Smoking Status: Tobacco use Status Tobacco use date assessed 11/25/22 10/20/23 14:23 Patient Tobacco Use Status Current everyday Tobacco 10/20/23 14:23 Tobacco use type Cigarette 10/20/23 14:23 e-Cigarette/Vaping Use Never Used 10/20/23 14:23 Thrive Assessment: Date of Thrive Assessment Date Thrive assessed 11/25/22 10/20/23 14:23 Const General: healthy appearing, no acute distress, alert and awake Nutritional Appearance: well nourished Orientation/consciousness: oriented to person, oriented to place and oriented to time HENMT Ears: TM's normal bilaterally General nose exam: Normal nasal mucous membranes and turbinates present Eyes Conjunctivae: conjunctivae normal Sclerae: sclerae normal Pupils: Equal, round and reactive pupils present Neck Neck: Yes no lymphadenopathy and Yes no JVD Thyroid: Thyroid normal Carotids: no bruits Resp Effort & Inspection: normal respiratory effort and not tachypneic Auscultation: no crackles, no rales, no rhonchi and no wheezes Cardio Rate: regular rate Rhythm: regular rhythm Heart sounds: no murmurs and normal S1 and S2 GI Palpation (GI): Soft to palpation, Tenderness to palpation present (GI) in the epigastrum, in the LLQ and in the RLQ, no hepatomegaly and no splenomegaly Auscultation: normal bowel sounds Skin General skin exam: no rashes or lesions noted and dry skin Neuro General: oriented to person, oriented to place and oriented to time Cranial nerves: Yes Equal, round and reactive pupils present Speech: No Abnormal speech present Gait exam (Neuro): Normal gait present Motor exam (neuro): no tremor noted Extrem Right upper extremity: full ROM Left upper extremity: full ROM Right lower extremity: full ROM; no edema Left lower extremity: full ROM; no edema Psych Mental Status: mental status grossly normal Speech and movement: Normal speech and movement present Affect: normal affect Attitude: cooperative Thought process: Normal thought process present Assessment and Plan Assessment & Plan (1) Constipation: Code(s): K59.00 - Constipation, unspecified Qualifiers: Constipation type: other constipation type Qualified Code(s): K59.09 - Other constipation Plan: Patient's signs and symptoms lower abdominal pain most likely from a GI etiology. Will supply patient with lactulose to use force laxative affect. Advised on increasing her fluids and fiber in her diet. She does admit to poor diet. (2) Right ovarian cyst: Code(s): N83.201 - Unspecified ovarian cyst, right side Plan: Most recent pelvic ultrasound showing a complex right ovarian cyst. She will follow-up with her chief airport guide on recommendations to have a transvaginal ultrasound for evaluation. (3) Fatigue: Code(s): R53.83 - Other fatigue Qualifiers: Encounter type: sequela Plan: Unclear etiology to patient's fatigue and body pain. We did discuss the possibility of her having worsening depression and or fibromyalgia. Will send for laboratory testing . (4) GERD (gastroesophageal reflux disease): Code(s): K21.9 - Gastro-esophageal reflux disease without esophagitis Qualifiers: Esophagitis presence: without esophagitis Qualified Code(s): K21.9 - Gastro-esophageal reflux disease without esophagitis Plan: Will supply patient with PPI therapy to help reduce her upper GI symptoms. Again advised on reducing gastric irritant foods in her diet and patient agrees and understands. Orders: Orders Vitamin B12 and Folate Today E53.8 - Deficiency of other specified B group vitamins, R53.83 - Other fatigue Complete Blood Count no Diff Today R53.83 - Other fatigue IRON PROFILE Today D50.9 - Iron deficiency anemia, unspecified, R53.83 - Other fatigue Vitamin D 25-OH Total Today R53.83 - Other fatigue Basic Metabolic Panel Today R53.83 - Other fatigue TSH reflex Free T4 Today E05.90 - Thyrotoxicosis, unspecified without thyrotoxic crisis or storm Medications: New lactulose 20 grams (30 mL) PO DAILY 15 days 1,200 mL 0RF E05.90 - Thyrotoxicosis, unspecified without thyrotoxic crisis or storm, K59.09 - Other constipation omeprazole 20 mg PO DAILY 30 days 30 caps 1RF K21.9 - Gastro-esophageal reflux disease without esophagitis cholecalciferol (vitamin D3) 25 mcg PO DAILY 90 days 90 caps 1RF R53.83 - Other fatigue Coding Level of Care Code Est Pt Level 4 (12018) Diagnoses Other constipation K59.09 Constipation type: other constipation type Right ovarian cyst N83.201 Fatigue R53.83 Encounter type: sequela Gastroesophageal reflux disease without esophagitis K21.9 Esophagitis presence: without esophagitis
== END 2023-10-20 14:47 | disposition home or self-care (01) ==
PROVIDERS: PCP Internal Medicine; Visit Provider Physician Assistant
DX: K59.09 Other constipation (principal); N83.201 Unspecified ovarian cyst, right side; R53.83 Other fatigue; K21.9 Gastro-esophageal reflux disease without esophagitis
CPT/HCPCS: 99214

== ENCOUNTER 2023-11-19 11:33 | Outpatient (REF) | payer OTHER, SELFPAY ==
--- NOTE | ~2023-11-19 | US_ITS ---
EXAMINATION: US PELVIS CLINICAL INFORMATION: Follow-up complex right ovarian cyst; the last menstrual period was one week prior. COMPARISON: Prior pelvic ultrasound examinations, most recently 10/05/2023. TECHNIQUE: Ultrasound of the pelvis is performed using both transabdominal and transvaginal transducers along with Doppler. Transvaginal imaging is performed due to inadequate visualization transabdominally. FINDINGS: Uterus: The uterus is anteverted and anteflexed. The uterus measures 7.1 x 3.9 x 4.3 cm. Nabothian cysts are seen within the cervix. The double wall endometrial thickness is 0.9 mm. The uterus is smooth in contour and has normal myometrial echogenicity. No visible fibroid. Adnexa: Both ovaries are visualized. There is normal color flow to the adnexa. There is no ovarian torsion. There is no pelvic ascites or fluid collection. Right ovary measures 2.4 x 1.7 x 1.8 cm, volume 3.8 mL. Left ovary measures 2.9 x 1.8 x 2.3 cm, volume 6.3 mL. US/US pelvic and transvaginal IMPRESSION: Nabothian cysts are seen within the cervix. The examination is otherwise unremarkable.
== END 2023-11-19 11:34 | disposition home or self-care (01) ==
LOC: HO.US 11:33
PROVIDERS: PCP Internal Medicine; Visit Provider Advanced Practice Midwife
DX: N83.299 Other ovarian cyst, unspecified side (principal)
CPT/HCPCS: 76830; 76856

== ENCOUNTER 2023-11-19 11:56 | Outpatient (REF) | payer OTHER, SELFPAY ==
[2023-11-19 12:27] LABS: Hematocrit 38.8 % (37.0-47.0); Hemoglobin 13.4 g/dl (12.0-16.0); Mean Corpuscular HGB Conc 34.5 g/dl (31.0-35.0); Mean Corpuscular Hemoglobin 32.1 pg (27.0-33.0); Mean Corpuscular Volume 92.8 fL (80.0-98.0); Mean Platelet Volume 9.3 fL (9.4-12.3); Platelet Count 256 X10*3/uL (160-400); Red Blood Count 4.18 X10*6/uL (4.20-5.50); Red Cell Distribution Width 12.2 % (11.0-16.0); White Blood Count 6.6 X10*3/uL (4.8-10.8)
[2023-11-19 13:07] LABS: Anion Gap 9 (12-20); Blood Urea Nitrogen 10 mg/dL (9-16); Calcium 9.6 mg/dL (8.4-10.2); Carbon Dioxide 28 mmol/L (22-29); Chloride 108 mmol/L (96-108); Estimated Glomerular Filt Rate > 60; Glucose Random 96 mg/dL (60-115); Iron 62 mcg/dL (30-160); Percent Iron Saturation 24 % (15-50); Sodium 141 mmol/L (135-145); Total Iron Binding Capacity 259 mcg/dL (228-428); Unsaturated Iron Binding 197 ug/dL
[2023-11-19 13:22] LABS: TSH reflex Free T4 0.41 uIU/mL (0.32-4.0); Vitamin D 25-OH Total 25.5 ng/mL (>30)
[2023-11-19 13:49] LABS: Folate 10.8 ng/mL (> or = 4.0)
[2023-11-19 15:41] LABS: Vitamin B12 632 pg/mL (200-900)
== END 2023-11-19 11:57 | disposition home or self-care (01) ==
LOC: HO.LAB 11:56
PROVIDERS: PCP Physician Assistant; Visit Provider Physician Assistant
DX: D50.9 Iron deficiency anemia, unspecified (principal); E53.8 Deficiency of other specified B group vitamins; R53.83 Other fatigue; E05.90 Thyrotoxicosis, unspecified without thyrotoxic crisis or storm
CPT/HCPCS: 36415; 80048; 82306; 82607; 82746; 83540; 84443; 85027

== ENCOUNTER 2023-12-24 09:29 | Outpatient (AMB) | payer OTHER, SELFPAY ==
--- NOTE | 2023-12-24 09:30 | A.OFFVIS_ITS ---
Intake Vital Signs 12/24/23 09:31 Height 5 ft Weight 150 lb BMI 29.3 BP 106/60 Intake Visit Reasons: US follow up Lan Support Specialist: Lan Support Specialist Present Allergies doxycycline Allergy (Intermediate, Verified 12/24/23 09:30) Gastrointestinal Upset Is last menstrual period known: Yes Last menstrual period: 11/26/23 HPI HPI Comments History of Present Illness Details Patient is here for an ultrasound follow-up on a complex ovarian cyst, she reports her pelvic pain is resolved, admits still feeling tired. She has a follow up with her PCP on Thursday. [facility] Medical History (Updated 12/24/23 @ 09:43 by Marci Shankar CNM) Dyspareunia, female Hyperthyroidism Chronic fatigue Right shoulder pain Hyperthyroidism Glaucoma Bilateral carpal tunnel syndrome Arthritis Depression with anxiety Migraine headache Surgical History Hx of tubal ligation History of delivery H/O removal of cyst History of appendectomy Family History Father No problems noted. Mother Stomach disorder Maternal Aunt Ovarian cancer Social History Housing: Apartment Alcohol intake: current Alcohol intake frequency: holidays/special occasions only Patient Tobacco Use Status: Current everyday Tobacco user Tobacco use type: Cigarette Cigarettes Per Day: 3 Years Smoked: 15 e-Cigarette/Vaping Use: Never Used Second Hand Smoke Exposure: No Substance Use Type: Marijuana service: No Current occupational status: employed Current occupational exposures/hazards: No Sexual orientation: Straight/Heterosexual Gender identity: Female Cognitive needs: No Hearing needs: No Vision needs: Yes (glasses) Female Reproductive History Menstrual Age of Menarche: 14 Date of last menstrual period: 11/26/23 Review of Systems Const All systems reviewed & are unremarkable except as noted in HPI and below Endo Reports no additional complaints Physical Exam Vital Signs: Last Vital Signs BP 106/60 12/24/23 09:31 BMI result Body Mass Index 29.3 Const General: cooperative, healthy appearing and no acute distress Psych Appearance: well kempt Attitude: cooperative Thought process: Normal thought process present Results Reviewed Results Reviewed: [address] [address] Ultrasound Report Signed Patient: Jacquelyn Abrams MR#: [id number] : 1985 Acct:[id number] Age/Sex: 38 / F ADM Date: 11/19/23 Loc: HO.US Attending Dr: Marci Shankar CNM Ordering Physician: Marci Shankar CNM Date of Service: 11/19/23 Procedure(s): US pelvic and transvaginal Accession Number(s): [id number] cc: Marci Shankar CNM; Stephanie Lord MD~ EXAMINATION: US PELVIS CLINICAL INFORMATION: Follow-up complex right ovarian cyst; the last menstrual period was one week prior. COMPARISON: Prior pelvic ultrasound examinations, most recently 10/05/2023. TECHNIQUE: Ultrasound of the pelvis is performed using both transabdominal and transvaginal transducers along with Doppler. Transvaginal imaging is performed due to inadequate visualization transabdominally. FINDINGS: Uterus: The uterus is anteverted and anteflexed. The uterus measures 7.1 x 3.9 x 4.3 cm. Nabothian cysts are seen within the cervix. The double wall endometrial thickness is 0.9 mm. The uterus is smooth in contour and has normal myometrial echogenicity. No visible fibroid. Adnexa: Both ovaries are visualized. There is normal color flow to the adnexa. There is no ovarian torsion. There is no pelvic ascites or fluid collection. Right ovary measures 2.4 x 1.7 x 1.8 cm, volume 3.8 mL. Left ovary measures 2.9 x 1.8 x 2.3 cm, volume 6.3 mL. US/US pelvic and transvaginal IMPRESSION: Nabothian cysts are seen within the cervix. The examination is otherwise unremarkable. Dictated By: Hakan Horowitz MD Signed By: <Electronically signed by Hakan Horowitz MD in OV> 11/24/23 1525 DD/ 1148 TD/TT: Process Analyst: CANDICE Assessment & Plan Assessment & Plan (1) Encounter to discuss test results: Code(s): Z71.2 - Person consulting for explanation of examination or test findings Plan Discussed: Ultrasound findings revealed a complex ovarian cyst has resolved. Advised to monitor her menstrual cycle if less than 21 days or heavy prolonged periods to report back to the office sooner than her annual which is due in August 2024. All of her questions and concerns were addressed to the best of my ability and shared decision making. She is agreeable to the plan of care. Coding Level of Care Code Est Pt Level 3 (38673) Diagnoses Encounter to discuss test results Z71.2
[2023-12-24 09:31] VITALS: BP 106/60; BMI 29.3
== END 2023-12-24 09:41 | disposition home or self-care (01) ==
LOC: HO.HWS 09:29
PROVIDERS: PCP Physician Assistant; Visit Provider Advanced Practice Midwife
DX: Z71.2 Person consulting for explanation of examination or test findings (principal)
CPT/HCPCS: 99213

== ENCOUNTER → 2023-12-24 09:29 | Outpatient (BNVA) | payer OTHER, SELFPAY | PROVIDERS: PCP Physician Assistant; Visit Provider Advanced Practice Midwife | DX: Z71.2 Person consulting for explanation of examination or test findings (principal) | CPT/HCPCS: 99212 ==

== ENCOUNTER 2023-12-28 13:44 | Outpatient (AMB) | payer OTHER, SELFPAY ==
[2023-12-28 13:51] VITALS: BP 102/68; BMI 29.3
--- NOTE | 2023-12-28 13:51 | A.OFFPC_ITS ---
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 Accompanied by: Self / Same As Patient Allergies doxycycline Allergy (Intermediate, Verified 12/28/23 14:02) Gastrointestinal Upset Medication List - Last Reconciled 12/28/23 by Stephanie Velarde MD cholecalciferol (vitamin D3) 25 mcg PO DAILY 90 days lactulose 20 grams (30 mL) PO DAILY 15 days omeprazole 20 mg PO DAILY 30 days Tobacco use date assessed: 12/28/23 Dental Screening Dental Screen Date: 12/28/23 Did you have a dental visit in the last 12 months?: No Did you have a dental problem in the last 6 months where you did not have access to dental care?: No Was dental information given to patient?: Patient has dentist HPI HPI Comments History of Present Illness Details This is a 38-year-old female that comes for her physical exam. Last Pap smear was 2022 and was normal. She wants to quit smoking and we talked about Chantix which she did agree. Patient is aware that can aggravate depression and cause suicidal ideation and that she needs to stop immediately if this happens. She is aware that Chantix is 0.5 mg once a day for the 1st 3 days and then twice a day. The 2nd month will be 1 mg twice a day. No chest pain or shortness of breath. Feels fatigue and tired. Last constipation with less than 3 bowel movements per week. [facility] Medical History (Updated 12/28/23 @ 14:20 by Stephanie Velarde MD) Dyspareunia, female Hyperthyroidism Chronic fatigue Right shoulder pain Hyperthyroidism Glaucoma Bilateral carpal tunnel syndrome Arthritis Depression with anxiety Migraine headache Surgical History Hx of tubal ligation History of delivery H/O removal of cyst History of appendectomy Family History Father No problems noted. Mother Stomach disorder Maternal Aunt Ovarian cancer Social History Housing: Apartment Alcohol intake: current Alcohol intake frequency: holidays/special occasions only Patient Tobacco Use Status: Current everyday Tobacco user Tobacco use type: Cigarette Cigarettes Per Day: 4 Years Smoked: 15 e-Cigarette/Vaping Use: Never Used Second Hand Smoke Exposure: No Substance Use Type: Marijuana service: No Current occupational status: employed Current occupational exposures/hazards: No Sexual orientation: Straight/Heterosexual Gender identity: Female Cognitive needs: No Hearing needs: No Vision needs: Yes (glasses) Female Reproductive History Menstrual Age of Menarche: 14 Questionnaire PHQ-9 Over the last 2 weeks, how often have you been bothered by any of the following problems? 1. Little interest or pleasure in doing things: not at all 2. Feeling down, depressed, or hopeless: not at all 3. Trouble falling or staying asleep, or sleeping too much: not at all 4. Feeling tired or having little energy: not at all 5. Poor appetite or overeating: not at all 6. Feeling bad about yourself - or that you are a failure or have let yourself or your family down: not at all 7. Trouble concentrating on things, such as reading the newspaper or watching television: not at all 8. Moving or speaking so slowly that other people could have noticed. Or the opposite - being so fidgety or restless that you have been moving around a lot more than usual: not at all 9. Thoughts that you would be better off or of hurting yourself in some way: not at all Total score: 0 Depression Screening Interpretation: Negative Depression Screening Done: Yes 91270 - PHQ-9 Billing: Yes Source: Developed by Drs. Constantino Apodaca, Kassy Friedman, Elian Jennings and colleagues, with an educational carlos from [employer]. Thrive Questionnaire Date Thrive assessed: 12/28/23 I am a: Patient What is your living situation today?: I have a steady place to live Within the past 12 months, did the food you bought not last and you didn't have the money to get more?: Never true Within the past 12 months, did you worry whether your food would run out before you got money to buy more?: Never true Do you have trouble paying for medicines?: No Do you have trouble getting transportation to medical appointments?: No Do you have trouble paying your heating and electricity bill?: No Do you have trouble taking care of your child, family member or friend?: No Do you have trouble with day-to-day activities such as bathing, preparing meals, shopping, managing finances, etc.?: No Are you currently unemployed and looking for a job?: No Are you interested in more education?: No Please select the resources that you would like help with: None Currently or been in a relationship where the following occur: no concerns reported THRIVE Score: 0 AUDIT C Alcohol Use Questionnaire (AUDIT-C) 1. How often do you have a drink containing alcohol?: Never Total Score: 0 LONNIE-7 AMB Questionnaire LONNIE-7 Date LONNIE - 7 assessed: 12/28/23 Feeling nervous, anxious, or on edge: 0 = Not at all Not being able to stop or control worryin = Not at all Worrying too much about different things: 0 = Not at all Trouble relaxin = Not at all Being so restless that it is hard to sit still: 0 = Not at all Becoming easily annoyed or irritable: 0 = Not at all Feeling afraid as if something awful might happen: 0 = Not at all Total LONNIE-7 score (0-4 normal; 5-9 mild; 10-14 moderate; 15-21 severe): 0 Source: Developed by Drs. Constantino Apodaca, Kassy Friedman, Elian Jennings and colleagues, with an educational carlos from [employer]. LONNIE-7 Assessment Billing LONNIE-7 Assessment Tool: LONNIE-7 Assessment 13682 Review of Systems Const All systems reviewed & are unremarkable except as noted in HPI and below Eyes Reports no additional complaints, Denies change in vision and Denies other visual disturbances Card Denies chest pain at rest, Denies chest pain with activity, Denies edema, Denies irregular heart rhythm, Denies claudication, Denies dyspnea, Denies dyspnea on exertion, Denies orthopnea, Denies paroxysmal nocturnal dyspnea and Denies slow heart rate Resp Denies cough, Denies dyspnea and Denies dyspnea on exertion GI Denies abdominal pain, Denies change in bowel habits, Reports constipation, Denies excessive flatus, Denies nausea and Denies vomiting Denies urinary incontinence, Denies urinary hesitancy and Denies urinary urgency Musc Denies abnormal gait, Denies atrophy, Denies deformity and Denies limited range of motion Skin/Breast Denies bleeding lesions, Denies changing lesions and Denies rash Neuro Denies abnormal gait, Denies behavioral changes, Denies confusion and Denies lack of coordination Psych Denies behavioral changes and Denies confusion Physical exam (Primary Care) Vital Signs: Last Vital Signs BP 102/68 12/28/23 13:51 BMI result Body Mass Index 29.3 Tobacco/Smoking Status: Tobacco use Status Tobacco use date assessed 12/28/23 12/28/23 13:57 Patient Tobacco Use Status Current everyday Tobacco 12/28/23 13:57 Tobacco use type Cigarette 12/28/23 13:57 e-Cigarette/Vaping Use Never Used 12/28/23 13:57 PHQ-9: PHQ-9 Score PHQ-9: Total score 0 12/28/23 13:57 Depression Screening Interpretation: Negative Thrive Assessment: Date of Thrive Assessment Date Thrive assessed 12/28/23 12/28/23 13:57 Currently or been in a relationship where the following occur: no concerns reported Const General: No confusion Orientation/consciousness: patient oriented x3 and No confusion HENMT Head: Yes normal to inspection, Yes normocephalic and Yes atraumatic Ears: external ears normal Eyes General: appearance normal, both eyes and all related structures Eyelids: Yes eyelids normal Conjunctivae: conjunctivae normal Neck Neck: Yes normal visual inspection and Yes supple Resp Effort & Inspection: normal respiratory effort Auscultation: clear to auscultation bilaterally Cardio Jugular venous distension: no JVD Rate: regular rate Rhythm: regular rhythm Heart sounds: S1 normal heart sound present and S2 normal heart sound present GI Inspection: Yes normal to inspection Palpation (GI): Soft to palpation and nontender Auscultation: normal bowel sounds Skin General skin exam: no rashes or lesions noted Neuro General: patient oriented x3, no focal motor deficits and No confusion Extrem General: Yes full ROM Psych Appearance: grossly normal Assessment and Plan Assessment & Plan (1) Physical exam: Code(s): Z00.00 - Encounter for general adult medical examination without abnormal findings Plan: Repeat in a year. Orders: Orders Zinc Today E66.3 - Overweight, R53.83 - Other fatigue Vitamin D 25-OH Total Today E55.9 - Vitamin D deficiency, unspecified Vitamin B12 and Folate Today E53.8 - Deficiency of other specified B group vitamins Referrals Chiropractic Referral S46.911A - Strain of unspecified muscle, fascia and tendon at shoulder and upper arm level, right arm, initial encounter Medications: New polyethylene glycol 3350 17 grams PO BID 25 days PRN 850 grams 6RF constipation Discontinued lactulose Discontinued Reason: Patient Refused 20 grams (30 mL) PO DAILY 15 days 1,200 mL 0RF E05.90 - Thyrotoxicosis, unspecified without thyrotoxic crisis or storm, K59.09 - Other constipation Coding Level of Care Code Est Pt Prev Care 18-39y(47526) Diagnoses Physical exam Z00.00 Additional Codes LONNIE-7 Assessment Billing - LONNIE-7 Assessment Tool: LONNIE-7 Assessment 46621 ([id number]) Time Spent (min) 32
== END 2023-12-28 14:21 | disposition home or self-care (01) ==
PROVIDERS: PCP Internal Medicine; Visit Provider Internal Medicine
DX: Z00.00 Encounter for general adult medical examination without abnormal findings (principal); E05.90 Thyrotoxicosis, unspecified without thyrotoxic crisis or storm
CPT/HCPCS: 99395

== ENCOUNTER 2024-06-07 12:57 | Outpatient (AMB) | payer OTHER, SELFPAY ==
[2024-06-07 13:01] VITALS: BP 100/60; BMI 29.7
--- NOTE | 2024-06-07 13:01 | A.OFFVIS_ITS ---
Vital Signs 06/07/24 13:01 Height 5 ft Weight 152 lb BMI 29.7 BP 100/60 Intake Visit Reasons: STD testing Wrapper Caser: Wrapper Caser Present (Cheli) Allergies doxycycline Allergy (Intermediate, Verified 06/07/24 13:01) Gastrointestinal Upset Is last menstrual period known: Yes Last menstrual period: 05/23/24 HPI Comments Details: Patient is here today for STD testing. She had a work-related incident scratch possible exposure and wanted to get testing for all the blood work. She admits to having some left-sided pelvic pain, like when she had past ovarian cyst. She reports she is sexually active at times. History of tubal ligation. [facility] Medical History Dyspareunia, female Hyperthyroidism Chronic fatigue Right shoulder pain Hyperthyroidism Glaucoma Bilateral carpal tunnel syndrome Arthritis Depression with anxiety Migraine headache Surgical History Hx of tubal ligation History of delivery H/O removal of cyst History of appendectomy Family History Father No problems noted. Mother Stomach disorder Maternal Aunt Ovarian cancer Social History Housing: Apartment Alcohol intake: current Alcohol intake frequency: holidays/special occasions only Patient Tobacco Use Status: Current everyday Tobacco user Tobacco use type: Cigarette Cigarettes Per Day: 4 Years Smoked: 15 e-Cigarette/Vaping Use: Never Used Second Hand Smoke Exposure: No Substance Use Type: Marijuana service: No Current occupational status: employed Current occupational exposures/hazards: No Sexual orientation: Straight/Heterosexual Gender identity: Female Cognitive needs: No Hearing needs: No Vision needs: Yes (glasses) Female Reproductive History Menstrual Age of Menarche: 14 Duration of menses: 3-5 days Date of last menstrual period: 05/23/24 control method: permanent sterilization Permanent Sterilization: BTL Review of Systems Const All systems reviewed & are unremarkable except as noted in HPI and below Physical Exam Vital Signs: Last Vital Signs BP 100/60 06/07/24 13:01 BMI result Body Mass Index 29.7 Const General: cooperative, healthy appearing and no acute distress Orientation/consciousness: patient oriented x3 GI Inspection: Yes normal to inspection Palpation (GI): Soft to palpation and Other GI palpation findings present (Nontender) Rectal Exam - Female: visual inspection normal General: Yes bladder normal to palpation External Female Exam: normal appearance of the urethra Speculum Exam - Vagina: normal appearance of the vagina, normal palpation and normal vaginal discharge Speculum Exam - Cervix: normal appearance of the cervix and normal palpation Bimanual exam- vagina & uterus: normal bimanual exam, normal palpation, uterine size normal, bladder normal to palpation, normal palpation, uterine shape normal and non-tender Bimanual Exam- Adnexa, other: normal adnexae Neuro General: patient oriented x3 Assessment & Plan Assessment & Plan (1) Pelvic pain: Code(s): R10.2 - Pelvic and perineal pain Category: Medical Plan: Discussed: Workup to include cultures, pelvic ultrasound, urinalysis, and STD blood work. She reports a work incident report was made and no longer works at that [employer]. Follow up in person for test results. Advised to go the emergency room if any significant pelvic pain. All of her questions and concerns were addressed to the best of my ability and shared decision making. She is agreeable to the plan of care. This note is constructed using voice recognition software. While every effort h as been made to ensure accuracy, fish cutter errors may have been included. Orders: Orders HIV Ab/Ag Today Z20.2 - Contact with and (suspected) exposure to infections with a predominantly sexual mode of transmission Syphilis Screen Today Z20.2 - Contact with and (suspected) exposure to infections with a predominantly sexual mode of transmission UA CC w/rflx Micro + Cult Today R10.2 - Pelvic and perineal pain US pelvic and transvaginal Today R10.2 - Pelvic and perineal pain Bacterial Vaginosis Panel Today R10.2 - Pelvic and perineal pain, Z20.2 - Contact with and (suspected) exposure to infections with a predominantly sexual mode of transmission CT NG by PCR Today R10.2 - Pelvic and perineal pain, Z20.2 - Contact with and (suspected) exposure to infections with a predominantly sexual mode of transmission Hepatitis C Antibody Reflex Today Z20.2 - Contact with and (suspected) exposure to infections with a predominantly sexual mode of transmission Hepatitis B Core Antibody Today Z20.2 - Contact with and (suspected) exposure to infections with a predominantly sexual mode of transmission Coding Level of Care Code Est Pt Level 4 (89718) Diagnoses Pelvic pain R10.2
== END 2024-06-07 13:53 | disposition home or self-care (01) ==
PROVIDERS: PCP Physician Assistant; Visit Provider Advanced Practice Midwife
DX: R10.2 Pelvic and perineal pain (principal)
CPT/HCPCS: 99214

== ENCOUNTER 2024-06-07 12:57 | Outpatient (REF) | payer OTHER, SELFPAY ==
[2024-06-07 17:04] LABS: Bacterial Vaginosis PCR POSITIVE (Negative); Candida Group PCR DETECTED (Not Detect); Candida glab krusei PCR NOT DETECTED (Not Detect); Trichomonas vaginalis PCR NOT DETECTED (Not Detect)
[2024-06-07 17:32] LABS: CT PCR NOT DETECTED (Not Detect.); NG PCR NOT DETECTED (Not Detect.)
[2024-06-08 04:00] LABS: Syphilis Screen Nonreactive (Nonreactive)
[2024-06-08 04:19] LABS: HBc Num1 0.07 S/CO (0.00-0.79); HIV AB/AG Nonreactive (Nonreactive); HIV Num 1 0.05 S/CO (0.00-0.99); Hepatitis B Core Antibody Nonreactive (Nonreactive); ~HepC Num1 0.09 S/CO (0.00-0.79); ~Hepatitis C Antibody Nonreactive (Nonreactive)
== END 2024-06-07 12:58 | disposition home or self-care (01) ==
LOC: HO.LAB 12:57
PROVIDERS: Absent Provider Internal Medicine; PCP Internal Medicine; Visit Provider Advanced Practice Midwife
DX: R10.2 Pelvic and perineal pain (principal); Z20.2 Contact with and (suspected) exposure to infections with a predominantly sexual mode of transmission
CPT/HCPCS: 0352U; 86704; 86780; 86803; 87389; 87491; 87591; 99212

== ENCOUNTER 2024-06-07 13:38 | Outpatient (REF) | payer OTHER, SELFPAY | END 2024-06-07 13:39 | disposition home or self-care (01) | LOC: HO.LNP 13:38 | PROVIDERS: Visit Provider Advanced Practice Midwife | DX: Z13.89 Encounter for screening for other disorder (principal) ==

== ENCOUNTER 2024-06-28 11:30 | Outpatient (REF) | payer OTHER, SELFPAY ==
--- NOTE | ~2024-06-28 | US_ITS ---
EXAMINATION: US PELVIS CLINICAL INFORMATION: Pelvic pain, last menstrual period June 18, 2024, left lower quadrant pain. COMPARISON: None available. TECHNIQUE: Transabdominal and transvaginal ultrasound images of the pelvis. FINDINGS: The uterus is anteverted and measures 7.3 x 4.0 x 4.5 cm. No significant free fluid. Endometrial thickness is 7 mm. Right ovary measures 2.7 x 1.7 x 2.0 cm, volume 4.8 mL. Left ovary measures 2.7 x 1.8 x 2.7 cm, volume 6.9 mL. US/US pelvic and transvaginal IMPRESSION: 1. Endometrial thickness is 7 mm. 2. No significant free fluid.
== END 2024-06-28 11:31 | disposition home or self-care (01) ==
LOC: HO.US 11:30
PROVIDERS: PCP Internal Medicine; Visit Provider Advanced Practice Midwife
DX: R10.2 Pelvic and perineal pain (principal)
CPT/HCPCS: 76830; 76856

== ENCOUNTER → 2024-07-19 13:58 | Outpatient (RCR) | payer OTHER, SELFPAY ==
[2020-09-07 15:13] VITALS: BP 117/61; PULSE 99; RESP 16; TEMP 37.1; O2SAT 100
[2020-09-07 15:16] VITALS: BMI 24.1
[2020-09-07 15:24] LABS: MANUAL DIFF FLAG NO
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
[2020-09-07 15:32] LABS: Basophils Absolute Auto 0.1 X10*3/uL (0.0-0.2); Basophils Percent Auto 0.8 % (0-2); Eosinophils Absolute Auto 0.2 X10*3/uL (0.0-0.4); Eosinophils Percent Auto 2.8 % (0-4); Hemoglobin 10.9 g/dl (12.0-16.0); Imm Gran Abs Auto 0.01 X10*3/uL (0.00-0.03); Imm Gran Pct Auto 0.1 % (0.0-0.4); Lymphocytes Absolute Auto 2.9 X10*3/uL (1.2-4.9); Lymphocytes Percent Auto 41.5 % (20-40); Mean Corpuscular Hemoglobin 29.8 pg (27.0-33.0); Mean Corpuscular Volume 90.2 fL (80-98); Mean Platelet Volume 8.8 fL (9.4-12.3); Monocytes Absolute Auto 0.3 X10*3/uL (0.1-1.2); Monocytes Percent Auto 4.8 % (2-11); Neutrophils Absolute Auto 3.5 X10*3/uL (2.0-8.3); Platelet Count 301 X10*3/uL (160-400); Red Blood Count 3.66 X10*6/uL (4.20-5.50); White Blood Count 7.1 X10*3/uL (4.8-10.8)
--- NOTE | 2020-09-07 16:11 | MHC.HEMONC ---
Exam, Follow up in 3 months. Refferal entered for Dr. Rivas office for hyperthyroid, given to Sarah hospital unit clerk for booking.
[2020-09-07 16:26] LABS: Ferritin 2 ng/mL (10-122)
[2020-09-07 16:34] LABS: Alanine Aminotransferase 9 U/L (0-31); Alkaline Phosphatase 85 U/L (39-117); Anion Gap 9 (12-20); Aspartate Amino Transferase 11 U/L (5-31); Bilirubin Total 0.6 mg/dL (0.0-1.0); Blood Urea Nitrogen 19 mg/dL (9-16); Calcium 8.5 mg/dL (8.4-10.2); Carbon Dioxide 25 mmol/L (22-29); Chloride 110 mmol/L (96-108); Creatinine Clr Calc Pharmacy 73.9; Estimated Glomerular Filt Rate > 60; Glucose Random 79 mg/dL (60-115); Potassium 4.5 mmol/l (3.3-5.1); Sodium 139 mmol/L (135-145); Total Protein 6.2 g/dL (6.5-8.0)
== END | disposition home or self-care (01) ==
LOC: HO.ONC 09-07 15:05
PROVIDERS: PCP Internal Medicine; Visit Provider Internal Medicine Medical Oncology
DX: R63.4 Abnormal weight loss (principal); R94.6 Abnormal results of thyroid function studies
CPT/HCPCS: 36415; 80053; 82728; 85025; 99214

== ENCOUNTER → 2024-09-16 08:19 | Outpatient (BNVA) | payer OTHER, SELFPAY | PROVIDERS: PCP Internal Medicine; Visit Provider Advanced Practice Midwife ==

== ENCOUNTER 2024-09-21 11:30 | Outpatient (AMB) | payer OTHER, SELFPAY ==
--- NOTE | 2024-09-21 11:35 | A.OFFVIS_ITS ---
Intake Visit Reasons: Ultra sound follow up Allergies doxycycline Allergy (Intermediate, Verified 09/21/24 11:36) Gastrointestinal Upset HPI Comments Details: She is a premenopausal woman presenting for annual examination and pelvic ultrasound follow up, history of recent pelvic pain she reports has since resolved. Her only concern was last cycle was 7 days not her normal 4 days. She denies any urinary symptoms, vaginal odor, irritation or pelvic pain. She tries to eat healthy and stays active with exercise. Currently is not sexually active. History of tubal ligation. Denies family history of breast or colon cancer. Family history of ovarian cancer-maternal aunt. Last pap smear 2022, negative. Current smoker, she has cut down to 5 cigarettes a day, and is working with her primary care to quit.. [facility] Medical History Hyperthyroidism Chronic fatigue Right shoulder pain Hyperthyroidism Glaucoma Bilateral carpal tunnel syndrome Arthritis Depression with anxiety Migraine headache Surgical History Hx of tubal ligation History of delivery H/O removal of cyst History of appendectomy Family History Father No problems noted. Mother Stomach disorder Maternal Aunt Ovarian cancer Social History Housing: Apartment Alcohol intake: current Alcohol intake frequency: holidays/special occasions only Patient Tobacco Use Status: Current everyday Tobacco user Tobacco use type: Cigarette Cigarettes Per Day: 4 Years Smoked: 15 e-Cigarette/Vaping Use: Never Used Second Hand Smoke Exposure: No Substance Use Type: Marijuana service: No Current occupational status: employed Current occupational exposures/hazards: No Sexual orientation: Straight/Heterosexual Gender identity: Female Cognitive needs: No Hearing needs: No Vision needs: Yes (glasses) Female Reproductive History Menstrual Age of Menarche: 14 Date of last menstrual period: 09/16/24 control method: permanent sterilization Permanent Sterilization: BTL Total pregnancies: 6 Full term: 2 Premature: 1 Number of Living Children: 2 Ab spontaneous: 3 Date of last pap smear: 09/09/23 (neg pap and hpv) Review of Systems Const All systems reviewed & are unremarkable except as noted in HPI and below Reports as per HPI Eyes Reports no additional complaints ENT Reports no additional complaints Card Reports no additional complaints Resp Reports no additional complaints GI Reports as per HPI and Reports no additional complaints Reports as per HPI Musc Reports no additional complaints Skin/Breast Reports as per HPI Neuro Reports no additional complaints Psych Reports no additional complaints Endo Reports no additional complaints Romario/Lymph Reports no additional complaints Aller/Immun Reports no additional complaints Physical Exam Const General: cooperative, healthy appearing, no acute distress, well developed and a lert Orientation/consciousness: patient oriented x3 HEENT Head: Yes normal to inspection Eyes General: appearance normal, both eyes and all related structures Neck Neck: Yes normal visual inspection Thyroid: Thyroid normal Chest Chest palpation & inspection: normal inspection of the chest and other (no puckering, dimpling, peau de orange, retraction, discharge, masses) Breast/axilla inspection: normal inspection of the breasts Breast/axilla palpation: normal palpation of the breasts Resp Effort & Inspection: normal respiratory effort GI Inspection: Yes normal to inspection Palpation (GI): Soft to palpation Rectal Exam - Female: deferred General: Yes bladder normal to palpation External Female Exam: normal external appearance and normal appearance of the urethra Speculum Exam - Vagina: normal appearance of the vagina, normal palpation and normal vaginal discharge Speculum Exam - Cervix: normal appearance of the cervix and normal palpation Bimanual exam- vagina & uterus: normal bimanual exam, normal palpation, uterine size normal, bladder normal to palpation, normal palpation and non-tender Bimanual Exam- Adnexa, other: no masses Skin General skin exam: no rashes or lesions noted Rashes: no rashes Neuro General: patient oriented x3 Cognition (Neuro): normal cognition Extrem General: Yes normal to inspection Psych Attitude: cooperative Thought process: Normal thought process present Results Reviewed Results Reviewed: [address] [address] Ultrasound Report Signed Patient: Jacquelyn Abrams MR#: [id number] : 1985 Acct:[id number] Age/Sex: 39 / F ADM Date: 06/28/24 Loc: HO.US Attending Dr: Marci Shankar CNM Ordering Physician: Marci Shankar CNM Date of Service: 06/28/24 Procedure(s): US pelvic and transvaginal Accession Number(s): [id number] cc: Marci Shankar CNM; Stephanie Lord MD~ EXAMINATION: US PELVIS CLINICAL INFORMATION: Pelvic pain, last menstrual period June 18, 2024, left lower quadrant pain. COMPARISON: None available. TECHNIQUE: Transabdominal and transvaginal ultrasound images of the pelvis. FINDINGS: The uterus is anteverted and measures 7.3 x 4.0 x 4.5 cm. No significant free fluid. Endometrial thickness is 7 mm. Right ovary measures 2.7 x 1.7 x 2.0 cm, volume 4.8 mL. Left ovary measures 2.7 x 1.8 x 2.7 cm, volume 6.9 mL. US/US pelvic and transvaginal IMPRESSION: 1. Endometrial thickness is 7 mm. 2. No significant free fluid. Dictated By: Nieves Nova MD Signed By: <Electronically signed by Nieves Nova MD in OV> 07/04/24 1531 DD/ 1152 TD/TT: Beet Worker: Assessment & Plan Assessment & Plan (1) Encounter for well woman exam with routine gynecological exam: Code(s): Z01.419 - Encounter for gynecological examination (general) (routine) without abnormal findings Category: Medical (2) Encounter to discuss test results: Code(s): Z71.2 - Person consulting for explanation of examination or test findings Plan Discussed: Current recommendations for pap smears per ASCCP guidelines. Breast awareness and periodic breast exams. Maintain a healthy lifestyle including a well balanced diet and routine exercise. Use condoms for STI prevention. Ultrasound findings. Patient verbalizes understanding and agrees to the plan of care. She was given opportunity to ask questions and all questions were answered to the best of my ability. RTO in one year for annual assistant department manager examination. This note is constructed using voice recognition software. While every effort has been made to ensure accuracy, supervisor publications production errors may have been included. Coding Level of Care Code Est Pt Prev Care 18-39y(76542) Diagnoses Encounter for well woman exam with routine gynecological exam Z01.419 Encounter to discuss test results Z71.2
== END 2024-09-21 12:35 | disposition home or self-care (01) ==
LOC: HO.HWS 11:30
PROVIDERS: PCP Internal Medicine; Visit Provider Advanced Practice Midwife
DX: Z01.419 Encounter for gynecological examination (general) (routine) without abnormal findings (principal); Z71.2 Person consulting for explanation of examination or test findings
CPT/HCPCS: 99395

== ENCOUNTER → 2024-09-21 11:30 | Outpatient (BNVA) | payer OTHER, SELFPAY | PROVIDERS: PCP Internal Medicine; Visit Provider Advanced Practice Midwife | DX: Z01.419 Encounter for gynecological examination (general) (routine) without abnormal findings (principal); Z71.2 Person consulting for explanation of examination or test findings | CPT/HCPCS: 99395 ==

== ENCOUNTER 2024-12-14 11:04 | Outpatient (REF) | payer OTHER, SELFPAY ==
[2024-12-14 11:52] LABS: MANUAL DIFF FLAG NO
[2024-12-14 12:29] LABS: Hematocrit 38.6 % (37.0-47.0); Hemoglobin 13.4 g/dl (12.0-16.0); Imm Gran Pct Auto 0.2 % (0.0-0.4); Lymphocytes Percent Auto 35.2 % (20-40); Mean Corpuscular HGB Conc 34.7 g/dl (31.0-35.0); Mean Corpuscular Hemoglobin 32.1 pg (27.0-33.0); Mean Corpuscular Volume 92.3 fL (80.0-98.0); Mean Platelet Volume 9.3 fL (9.4-12.3); Monocytes Percent Auto 5.2 % (2-11); Neutrophils Percent Auto 57.1 % (45-73); Platelet Count 266 X10*3/uL (160-400); Red Blood Count 4.18 X10*6/uL (4.20-5.50); Red Cell Distribution Width 12.3 % (11.0-16.0); White Blood Count 5.4 X10*3/uL (4.8-10.8)
[2024-12-14 12:30] LABS: Basophils Percent Auto 0.6 % (0-2); Eosinophils Absolute Auto 0.1 X10*3/uL (0.0-0.4); Eosinophils Percent Auto 1.7 % (0-4); Imm Gran Abs Auto 0.01 X10*3/uL (0.00-0.03); Lymphocytes Absolute Auto 1.9 X10*3/uL (1.2-4.9); Monocytes Absolute Auto 0.3 X10*3/uL (0.1-1.2); Neutrophils Absolute Auto 3.1 x10*3/uL (2.0-8.3)
--- OUTSIDE RECORDS SUMMARY | 2024-12-14 13:19 | XMS_ITS | Clinical Summary ---
Author Organization [employer] [facility] Address [address] [place] [address] Care Team Providers Care Medical Or Surgical Instrument Maker Name Role Phone Unavailable Primary Care Provider Unavailabl e Medications No known medications Active Problems Problem Noted Date Diagnosed Date Periodontal disease 08/30/2024 Dental calculus 08/30/2024 Dental caries 08/30/2024 Missing teeth, acquired 08/30/2024 Gingival bleeding 08/30/2024 Localized gingival recession 08/30/2024 Acute gingival inflammation 08/30/2024 Encounters Date Type Department Care Team Description 11/14/2024 Telephone [facility] [address] [place] [address] Bethany Mahan 11/11/2024 Telephone [facility] [address] [place] [address] Peter San, MARIA DEL CARMEN cx needs to rs from Last 3 Months Social History Tobacco Use Types Packs/Day Years Used Date Smoking Tobacco: Every Day Cigarettes Smokeless Tobacco: Never Tobacco Cessation:Ready to Q uit: Not Asked; Counseling Given: Not Answered Comments Unknown Sex and Gender Information Value Date Recorded Sex Assigned at Female 09/22/2022 10:17 AM EDT Legal Sex Female 10:17 AM EDT Gender Identity Female 09/22/2022 10:17 AM EDT Sexual Orientation Straight 09/22/2022 10 :17 AM EDT Last Filed Vital Signs Vital Sign Reading Time Taken Comments Blood Pressure 96/68 08/30/2024 11:08 AM EDT Pulse - - Temperature - - Respiratory Rate - - Oxygen Saturation - - Inhaled Oxygen Concentration - - Weight - - Height - - Body Mass Index - - Plan of Treatment Health Maintenance Due Date Last Done Comments Depression Screening 1987 HIV Screening 1987 Lipid Panel 1987 SDOH Screening 1987 Pneumococcal Vaccine: Pediatrics (0 to 5 Years) and At-Risk Patients (6 to 64 Years) (1 of 2 - PCV) 1993 Alcohol/Substance Use Screening 1999 Hepatitis C Screening 2005 Hepatitis B Vaccines (1 of 3 - 19+ 3-dose series) 2006 Pap Smear 2008 Cervical Cancer Screening 2017 HPV/Cotest 2017 COVID-19 Vaccine (3 - season) 2024 02/20/2022, 04/25/2021 Influenza Vaccine (#1) 2024 , 11/12/2020, 11/26/2018 Dental Oral Exam 03/01/2025 08/30/2024, , 09/12/2020, Additional history exists Dental Prophylaxis 03/01/2025 08/30/2024, 0 07/10/2022, 04/30/2021, Additional history exists Tobacco Screening 08/30/2025 08/30/2024 Dental X-Ray: Bitewings 08/31/2025 08/30/20 24, 07/10/2022, 01/13/2020, Additional history exists Dental X-Ray: Full Mouth 08/31/2027 024, 01/13/2020, 10/03/2013, Additional history exists DTaP/Tdap/Td Vaccines (3 - Td or Tdap) 02/07/2031 02/07/2021, 04/06/2019, 12/06/2015 Zoster Vaccines (1 of 2) 2037 RSV Patients and Patients Aged 60 years or older (1 - 1-dose 75+ series) 2062 HIB Vaccines Aged Out No longer eligi ble based on patient's age to complete this topic HPV Vaccines Aged Out No longer eligi ble based on patient's age to complete this topic Hepatitis A Vaccines Aged Out No long er eligible based on patient's age to complete this topic IPV Vaccines Aged Out No longer eligi ble based on patient's age to complete this topic Meningococcal Vaccine Aged Out No noa flory eligible based on patient's age to complete this topic RSV under 20 months Aged Out No longe r eligible based on patient's age to complete this topic Rotavirus Vaccines Aged Out No longer eligible based on patient's age to complete this topic Procedures Procedure Name Priority Date/Time Associated Diagnosis Comments PROPHYLAXIS - ADULT Routine 08/30/2024 1 1:00 AM EDT Periodontal disease Dental calculus Dental caries Gingival bleeding DIAGNOSTIC - DIAGNOSTIC IMAGING - INTRAORAL - COMPREHENSIVE SERIES OF RADIOGRAPHIC IMAGES Routine 08/30/2024 11:00 AM EDT Periodontal disease Dental calculus Dental caries Missing teeth, acquired Gingival bleeding Localized gingival recession PERIODIC ORAL EVALUATION - ESTABLISHED PATIENT Routine 08/30/2024 11:00 AM EDT Periodontal disease Dental calculus Dental caries Missing teeth, acquired Gingival bleeding Localized gingival recession Acute gingival inflammation Encounter for dental examination from Last 3 Months or Most Recently Relevant to Health Maintenance Insurance [address] [place] [id number] [facility] MEDICAID STAND ADULT
--- OUTSIDE RECORDS SUMMARY | 2024-12-14 13:19 | XMS_ITS | Encounter Summary ---
Author Organization [facility] [facility] Address [address] [place] [address] Care Team Providers Care Extra Hand Name Role Phone Unavailable Primary Care Provider Unavailabl e Encounter Details Date Type Department Care Team (Late st Contact Info) Description 11/14/2024 Telephone [facility] [address] [place] [address] Bethany Mahan [address] [place] [address] Social History Tobacco Use Types Packs/Day Years Used Date Smoking Tobacco: Every Day Cigarettes Smokeless Tobacco: Never Comments Unknown Sex and Gender Information Value Date Recorded Sex Assigned at Female 09/22/2022 10:17 AM EDT Legal Sex Female 10:17 AM EDT Gender Identity Female 09/22/2022 10:17 AM EDT Sexual Orientation Straight 09/22/2022 10 :17 AM EDT documented as of this encounter Miscellaneous Notes * Telephone Encounter - Tamera Trujillo - 11/14/2024 9:06 AM EST Called to schedule a deep cleaning appointment but there was no answer so I left a voicemail. documented in this encounter Plan of Treatment Not on file documented as of this encounter Visit Diagnoses Not on filedocumented in this encounter
--- OUTSIDE RECORDS SUMMARY | 2024-12-14 13:19 | XMS_ITS | Encounter Summary ---
Author Organization [employer] [facility] Address [address] [place] [address] Care Team Providers Care Bandage Maker Name Role Phone Unavailable Primary Care Provider Unavailabl e Reason for Visit * Reason Onset Date Comments cx needs to rs 11/11/2024 Encounter Details Date Type Department Care Team (Late st Contact Info) Description 11/11/2024 Telephone [facility] [address] [place] [address] Peter San, MARIA DEL CARMEN [address] [place] [address] cx needs to rs Social History Tobacco Use Types Packs/Day Years [...] encounter Miscellaneous Notes * Telephone Encounter - Swati Armando - 11/11/2024 12:24 PM EST Patient had to cancel appt for today 11/11 and would like to rs for a morning appt. Please reach out to samir GERARDO documented in this encounter Plan of Treatment Not on file documented as of this encounter Visit Diagnoses Not on filedocumented in this encounter
--- OUTSIDE RECORDS SUMMARY | 2024-12-14 13:19 | XMS_ITS | Encounter Summary ---
Author Organization [employer] [facility] Address [address] [place] [address] Care Team Providers Care Tv Host Name Role Phone Unavailable Primary Care Provider Unavailabl e Encounter Details Date Type Department Care Team (Latest Contact Info) Description 07/10/2022 Abstract [facility] Dental, Provider, DDS Social History Tobacco Use Types Packs/Day Years Used Date Smoking Tobacco: Never Assessed Comments Unknown Sex and Gender Information Value Date Recorded Sex Assigned at Female 09/22/2022 10:17 AM EDT Legal Sex Female 10:17 AM EDT Gender Identity Female 09/22/2022 10:17 AM EDT Sexual Orientation Straight 09/22/2022 10 :17 AM EDT documented as of this encounter Plan of Treatment Not on file documented as of this encounter Visit Diagnoses Not on filedocumented in this encounter
--- OUTSIDE RECORDS SUMMARY | 2024-12-14 13:19 | XMS_ITS | Encounter Summary ---
Author Organization [facility] [facility] Address [address] [place] [address] Care Team Providers Care Grinder Dresser Name Role Phone Unavailable Primary Care Provider Unavailabl e Encounter Details Date Type Department Care Team (Latest Contact Info) Description 09/12/2020 Abstract [facility] CON[facility] Dental, Provider, DDS Social History Tobacco [...]
[2024-12-14 13:39] LABS: Alanine Aminotransferase 11 U/L (0-31); Albumin Level 4.5 g/dL (3.5-5.0); Alkaline Phosphatase 39 U/L (39-117); Anion Gap 11 (12-20); Aspartate Amino Transferase 17 U/L (5-31); Bilirubin Total 2.1 mg/dL (0.0-1.0); Blood Urea Nitrogen 11 mg/dL (9-16); Calcium 9.7 mg/dL (8.4-10.2); Carbon Dioxide 25 mmol/L (22-29); Chloride 110 mmol/L (96-108); Cholesterol 124 mg/dL (<200); Estimated Glomerular Filt Rate > 60; Glucose Fasting 87 mg/dL (60-99); HDL Cholesterol 50 mg/dL (>40); Iron 94 mcg/dL (30-160); LDL Cholesterol Calculated 64 mg/dL (<100); Percent Iron Saturation 42 % (15-50); Potassium 4.5 mmol/L (3.3-5.1); Sodium 141 mmol/L (135-145); Total Iron Binding Capacity 224 mcg/dL (228-428); Total Protein 7.6 g/dL (6.5-8.0); Triglycerides 54 mg/dL (<150); Unsaturated Iron Binding 130 ug/dL
[2024-12-14 13:46] LABS: Folate 9.5 ng/mL (> or = 4.0); Vitamin B12 473 pg/mL (200-900)
[2024-12-14 13:52] LABS: Free T4 (Free Thyroxine) 0.91 ng/dL (0.71-1.85); Thyroid Stimulating Hormone 0.87 uIU/mL (0.32-4.0); Vitamin D 25-OH Total 39.8 ng/mL (>30)
[2024-12-17 02:14] LABS: Zinc 75 mcg/dL (60-130)
== END 2024-12-14 11:05 | disposition home or self-care (01) ==
LOC: HO.LAB 11:04
PROVIDERS: PCP Internal Medicine; Visit Provider Internal Medicine
DX: R10.13 Epigastric pain (principal); R11.2 Nausea with vomiting, unspecified; K59.04 Chronic idiopathic constipation; E05.90 Thyrotoxicosis, unspecified without thyrotoxic crisis or storm; E55.9 Vitamin D deficiency, unspecified; E78.5 Hyperlipidemia, unspecified; D64.9 Anemia, unspecified; R63.4 Abnormal weight loss; Z28.21 Immunization not carried out because of patient refusal
CPT/HCPCS: 36415; 80053; 80061; 82306; 82607; 82746; 83540; 84439; 84443; 84630; 85025; 90471; 96127; 99212

== ENCOUNTER 2024-12-14 11:04 | Outpatient (AMB) | payer OTHER, SELFPAY ==
[2024-12-14 11:08] VITALS: BP 126/70; BMI 26.6
--- NOTE | 2024-12-14 11:08 | MHC.PC.OV ---
Vital Signs 12/14/24 11:08 Height 5 ft Weight 136 lb BMI 26.6 BP 126/70 Blood Pressure Location Lt brachial Position Sitting Intake Visit Reasons: follow up Intake Note: Patient here c/o nausea, unable to keep food down Miller Apprentice Required: No Accompanied by: Self / Same As Patient Allergies doxycycline Allergy (Intermediate, Verified 12/14/24 11:16) Gastrointestinal Upset Medication List - Last Reconciled 12/14/24 by Stephanie Velarde MD cholecalciferol (vitamin D3) 25 mcg PO DAILY 90 days omeprazole 20 mg PO DAILY 30 days polyethylene glycol 3350 17 grams PO BID PRN 25 days Tobacco use date assessed: 12/14/24 Dental Screening Dental Screen Date: 12/14/24 Did you have a dental visit in the last 12 months?: Yes Did you have a dental problem in the last 6 months where you did not have access to dental care?: No Was dental information given to patient?: Patient has dentist HPI HPI Comments History of Present Illness Details The patient is a 39-year-old female presenting with nausea, vomiting, and unintentional weight loss. She reports a significant decrease in weight from 155 lbs to 136 lbs over the past month, associated with episodes of nausea and vomiting. The vomiting consists of yellowish material, leading to severe discomfort and an inability to tolerate food or water intake for the past three days. Additionally, she describes a history of constipation with a sensation of abdominal blockage, requiring the use of suppositories to facilitate bowel movements. The patient has been experiencing these symptoms for approximately two weeks, with a noticeable exacerbation in the past few days. Despite attempts to manage nausea with previously effective medication, the condition persists. Alongside these symptoms, she reports feeling nauseous even without food intake and experiences heartburn. Efforts to consume water result in immediate emesis. She has a significant past history of gastrointestinal issues, mentioning a prior consultation. She does not currently consume high fiber or protein diets, which could possibly contribute to her constipation. Notably, there is no history of COVID-19 or influenza, as confirmed by recent negative tests. Has a history of hyperthyroidism thyroid will be checked. [facility] Medical History (Updated 12/14/24 @ 12:44 by Stephanie Velarde MD) Hyperthyroidism Chronic fatigue Right shoulder pain Hyperthyroidism Glaucoma Bilateral carpal tunnel syndrome Arthritis Depression with anxiety Migraine headache Surgical History Hx of tubal ligation History of delivery H/O removal of cyst History of appendectomy Family History Father No problems noted. Mother Stomach disorder Maternal Aunt Ovarian cancer Social History Housing: Apartment Alcohol intake: current Alcohol intake frequency: holidays/special occasions only Patient Tobacco Use Status: Current everyday Tobacco user Tobacco use type: Cigarette Cigarettes Per Day: 4 Years Smoked: 15 Packs per year/per ci.00 e-Cigarette/Vaping Use: Never Used Second Hand Smoke Exposure: No Substance Use Type: Marijuana service: No Current occupational status: employed Current occupational exposures/hazards: No Sexual orientation: Straight/Heterosexual Gender identity: Female Cognitive needs: No Hearing needs: No Vision needs: Yes (glasses) Female Reproductive History Menstrual Age of Menarche: 14 Questionnaire PHQ-9 Over the last 2 weeks, how often have you been bothered by any of the following problems? 1. Little interest or pleasure in doing things: not at all 2. Feeling down, depressed, or hopeless: not at all 3. Trouble falling or staying asleep, or sleeping too much: not at all 4. Feeling tired or having little energy: not at all 5. Poor appetite or overeating: not at all 6. Feeling bad about yourself - or that you are a failure or have let yourself or your family down: not at all 7. Trouble concentrating on things, such as reading the newspaper or watching television: not at all 8. Moving or speaking so slowly that other people could have noticed. Or the opposite - being so fidgety or restless that you have been moving around a lot more than usual: not at all 9. Thoughts that you would be better off or of hurting yourself in some way: not at all Total score: 0 Depression Screening Interpretation: Negative Depression Screening Done: Yes 48639 - PHQ-9 Billing: Yes Source: Developed by Drs. Constantino Apodaca, Kassy Friedman, Elian Jennings and colleagues, with an educational carlos from [employer]. Thrive Questionnaire Date Thrive assessed: 12/14/24 I am a: Patient What is your living situation today?: I have a steady place to live Within the past 12 months, did the food you bought not last and you didn't have the money to get more?: Never true Within the past 12 months, did you worry whether your food would run out before you got money to buy more?: Never true Do you have trouble paying for medicines?: No Do you have trouble getting transportation to medical appointments?: No Do you have trouble paying your heating and electricity bill?: No Do you have trouble taking care of your child, family member or friend?: No Do you have trouble with day-to-day activities such as bathing, preparing meals, shopping, managing finances, etc.?: No Are you currently unemployed and looking for a job?: No Are you interested in more education?: No Please select the resources that you would like help with: None Currently or been in a relationship where the following occur: No concerns reported THRIVE Score: 0 AUDIT C Alcohol Use Questionnaire (AUDIT-C) 1. How often do you have a drink containing alcohol?: Never Total Score: 0 LONNIE-7 AMB Questionnaire LONNIE-7 Date LONNIE - 7 assessed: 12/14/24 Feeling nervous, anxious, or on edge: 0 = Not at all Not being able to stop or control worryin = Not at all Worrying too much about different things: 0 = Not at all Trouble relaxin = Not at all Being so restless that it is hard to sit still: 0 = Not at all Becoming easily annoyed or irritable: 0 = Not at all Feeling afraid as if something awful might happen: 0 = Not at all Total LONNIE-7 score (0-4 normal; 5-9 mild; 10-14 moderate; 15-21 severe): 0 Source: Developed by Drs. Constantino Apodaca, Kassy Friedman, Elian Jennings and colleagues, with an educational carlos from [employer]. LONNIE-7 Assessment Billing LONNIE-7 Assessment Tool: LONNIE-7 Assessment 07924 Review of Systems Const All systems reviewed & are unremarkable except as noted in HPI and below Card Denies chest pain at rest, Denies chest pain with activity, Denies edema, Denies irregular heart rhythm, Denies claudication, Denies dyspnea, Denies dyspnea on exertion, Denies orthopnea, Denies paroxysmal nocturnal dyspnea and Denies slow heart rate Resp Denies cough, Denies dyspnea and Denies dyspnea on exertion Physical exam (Primary Care) Vital Signs: Last Vital Signs BP 126/70 12/14/24 11:08 BMI result Body Mass Index 26.6 Tobacco/Smoking Status: Tobacco use Status Tobacco use date assessed 12/14/24 12/14/24 11:13 Patient Tobacco Use Status Current everyday Tobacco 12/14/24 11:13 Tobacco use type Cigarette 12/14/24 11:13 e-Cigarette/Vaping Use Never Used 12/14/24 11:13 PHQ-9: PHQ-9 Score PHQ-9: Total score 0 12/14/24 11:28 Depression Screening Interpretation: Negative Thrive Assessment: Date of Thrive Assessment Date Thrive assessed 12/14/24 12/14/24 11:13 Currently or been in a relationship where the following occur: No concerns reported Resp Effort & Inspection: normal respiratory effort Auscultation: clear to auscultation bilaterally Cardio Jugular venous distension: no JVD Rate: regular rate Rhythm: regular rhythm Heart sounds: S1 normal heart sound present and S2 normal heart sound present GI Inspection: Yes normal to inspection Palpation (GI): Soft to palpation and nontender Auscultation: normal bowel sounds Extrem General: Yes full ROM Office Procedures Flu Questionnaire Does the patient have a severe egg allergy?: No Immunizations Fluarix Triv 2145-1216 (PF) 45 mcg (15 mcg x 3)/0.5 mL IM syringe Performing Provider: Stephanie Velarde MD [facility] [facility] Documented (not given) by: DARIELA Dowling on 12/14/24 11:28 Reason Not Given: Patient Refused Coding Level of Care Code Est Pt Level 4 (44844) Complex EM visit Add On G2211 Diagnoses Epigastric abdominal pain R10.13 Chronic idiopathic constipation K59.04 Hyperthyroidism E05.90 Nausea and vomiting R11.2 Additional Codes LONNIE-7 Assessment Billing - LONNIE-7 Assessment Tool: LONNIE-7 Assessment 28944 ([id number]) PHQ-9 - 48359 - PHQ-9 Billing: Yes ([id number]) Time Spent (min) 23 Assessment & Plan Assessment & Plan (1) Epigastric abdominal pain: Code(s): R10.13 - Epigastric pain Category: Medical (2) Chronic idiopathic constipation: Code(s): K59.04 - Chronic idiopathic constipation Category: Medical (3) Hyperthyroidism: Code(s): E05.90 - Thyrotoxicosis, unspecified without thyrotoxic crisis or storm Category: Medical (4) Nausea and vomiting: Code(s): R11.2 - Nausea with vomiting, unspecified Category: Medical Plan - Order blood work, including fasting tests to check thyroid function. - Recommend referral to gastroenterology for further evaluation of gastrointestinal symptoms. - Discuss potential need for an upper GI series or endoscopy to evaluate possible obstruction or anatomical abnormalities. - Initiate antiemetic treatment to address nausea and vomiting. - Discuss dietary modifications to include more fiber to address constipation. - Consider assessment for potential abdominal imaging if symptoms do not improve. Patient was informed and verbally consented to the use of an ambient scribe for clinic note documentation during this visit. During today's visit, I discussed with the patient the symptoms of nausea, vomiting, significant weight loss, and constipation. We considered the possibility of gastrointestinal obstruction given her history and current presentation. I emphasized the importance of addressing her hydration and nutritional intake. We agreed to proceed with blood work to assess thyroid function, which can affect metabolism and gastrointestinal function. I also recommended an antiemetic to manage her nausea and prevent further weight loss. We considered the need for a gastroenterology consultation and possible endoscopy to further investigate the abdominal issues. I explained the anticipated benefits of these evaluations and assured her of continued monitoring of her condition. Orders: Orders Vitamin D 25-OH Total Today E55.9 - Vitamin D deficiency, unspecified Thyroid Stimulating Hormone Today E05.90 - Thyrotoxicosis, unspecified without thyrotoxic crisis or storm Free T4 (Free Thyroxine) Today E05.90 - Thyrotoxicosis, unspecified without thyrotoxic crisis or storm Lipid Panel Today E78.5 - Hyperlipidemia, unspecified Complete Blood Count Auto Diff Today D64.9 - Anemia, unspecified IRON PROFILE Today D64.9 - Anemia, unspecified Comprehensive [place]. Panel Fast Today K59.04 - Chronic idiopathic constipation [place] upper GI series Today R10.13 - Epigastric pain Influenza [id number] Immunization Today Z23 - Encounter for immunization Referrals Gastroenterology Referral K59.04 - Chronic idiopathic constipation Medications: New ondansetron 8 mg PO Q8H PRN 90 tabs 0RF nausea and vomiting 30 days Patient Instructions: - Undergo fasting blood work as discussed. - Follow up with the recommended gastroenterology consultation. - Begin antiemetic therapy as prescribed to alleviate nausea. - Increase dietary fiber intake as tolerated to help relieve constipation. - Maintain hydration through small sips of water and oral rehydration solutions to prevent dehydration. - Seek further medical attention if symptoms worsen or if new symptoms develop.
== END 2024-12-14 11:29 | disposition home or self-care (01) ==
PROVIDERS: PCP Internal Medicine; Visit Provider Internal Medicine
DX: R10.13 Epigastric pain (principal); K59.04 Chronic idiopathic constipation; E05.90 Thyrotoxicosis, unspecified without thyrotoxic crisis or storm; R11.2 Nausea with vomiting, unspecified; Z23 Encounter for immunization

== ENCOUNTER 2024-12-29 08:29 | Outpatient (AMB) | payer OTHER, SELFPAY ==
[2024-12-29 08:36] VITALS: BP 122/80; BMI 26.6
--- NOTE | 2024-12-29 08:36 | A.OFFPC_ITS ---
Vital Signs 12/29/24 08:36 Height 5 ft Weight 136 lb BMI 26.6 BP 122/80 Blood Pressure Location Lt brachial Position Sitting Intake Visit Reasons: PE Intake Note: Patient here for an annual physical exam Mounter Automatic Required: No Accompanied by: Self / Same As Patient Allergies doxycycline Allergy (Intermediate, Verified 12/29/24 08:42) Gastrointestinal Upset Medication List - Last Reconciled 12/29/24 by Stephanie Velarde MD cholecalciferol (vitamin D3) 25 mcg PO DAILY 90 days omeprazole 20 mg PO DAILY 30 days ondansetron 8 mg PO Q8H PRN 30 days polyethylene glycol 3350 17 grams PO BID PRN 25 days Tobacco use date assessed: 12/29/24 Dental Screening Dental Screen Date: 12/14/24 HPI HPI Comments History of Present Illness Details The patient is a 39-year-old female presenting for her physical exam. She reported testing positive for Influenza A three days prior, following symptoms of fever and nasal congestion. Her temperature runs below the average range, typically around 94-95?F, but spiked to 98?F, indicating a fever on her scale. She suspects that she contracted the flu from her son, who likely acquired it at school. The patient has since been on leave from work and has been advised to stay home for seven days post positive test result. For her medication needs, the patient has requested a refill of her polyethylene glycol (MiraLax) and has mentioned she no longer uses omeprazole after losing her previous bottle. Notably, she experiences gastrointestinal upset in response to doxycycline medication. She mentioned using polyter powder with MiraLax effectively for bowel management. Regarding her previous procedures, she has undergone tubal ligation, a , cyst removal from her head, and an appendectomy. Her mother is alive with a stomach disorder. Additionally, the patient has a smoking history of six to nine cigarettes per day and occasional alcohol consumption during holidays or special occasions. - Tdap vaccine was administered in 2020; the next dose is due in 2030. - Pap smear not required until 2027 as p er recent OBGYN examination. - Negative HPV test in 2022. - Blood tests indicated normal hemoglobi n and white blood cell counts, normal thyroid function, excellent sugar levels, and normal liver enzymes. - Vitamin D is currently normal at 39.8, Vitamin B12 is adequate, and cholesterol is excellent. - Elevated total bilirubin noted; referr al to GI ongoing for further evaluation. [facility] Medical History (Updated 12/29/24 @ 09:05 by Stephanie Velarde MD) Hyperthyroidism Chronic fatigue Right shoulder pain Hyperthyroidism Glaucoma Bilateral carpal tunnel syndrome Arthritis Depression with anxiety Migraine headache Surgical History Hx of tubal ligation History of delivery H/O removal of cyst History of appendectomy Family History Father No problems noted. Mother Stomach disorder Maternal Aunt Ovarian cancer Social History (Updated 12/29/24 @ 08:50 by Stephanie Velarde MD) Housing: Apartment Alcohol intake: current Alcohol intake frequency: holidays/special occasions only Alcohol type: hard liquor Patient Tobacco Use Status: Current everyday Tobacco user Tobacco use type: Cigarette Cigarettes Per Day: 6 Years Smoked: 15 e-Cigarette/Vaping Use: Never Used Second Hand Smoke Exposure: No Substance Use Type: Marijuana service: No Current occupational status: employed Current occupational exposures/hazards: No Sexual orientation: Straight/Heterosexual Gender identity: Female Cognitive needs: No Hearing needs: No Vision needs: Yes (glasses) Female Reproductive History Menstrual Age of Menarche: 14 Questionnaire PHQ-9 Over the last 2 weeks, how often have you been bothered by any of the following problems? 1. Little interest or pleasure in doing things: not at all 2. Feeling down, depressed, or hopeless: not at all 3. Trouble falling or staying asleep, or sleeping too much: not at all 4. Feeling tired or having little energy: nearly every day 5. Poor appetite or overeating: not at all 6. Feeling bad about yourself - or that you are a failure or have let yourself or your family down: not at all 7. Trouble concentrating on things, such as reading the newspaper or watching television: not at all 8. Moving or speaking so slowly that other people could have noticed. Or the opposite - being so fidgety or restless that you have been moving around a lot more than usual: not at all 9. Thoughts that you would be better off or of hurting yourself in some way : not at all Total score: 3 Depression Screening Interpretation: Positive Depression Screening Follow-up: Existing condition and Follow-up Visit Requested Depression Screening Done: Yes 97347 - PHQ-9 Billing: Yes Source: Developed by Drs. Constantino Apodaca, Kassy Friedman, Elian Jennings and colleagues, with an educational carlos from [employer] Thrive Questionnaire Date Thrive assessed: 12/14/24 I am a: Patient What is your living situation today?: I have a steady place to live Within the past 12 months, did the food you bought not last and you didn't have the money to get more?: Never true Within the past 12 months, did you worry whether your food would run out before you got money to buy more?: Never true Do you have trouble paying for medicines?: No Do you have trouble getting transportation to medical appointments?: No Do you have trouble paying your heating and electricity bill?: No Do you have trouble taking care of your child, family member or friend?: No Do you have trouble with day-to-day activities such as bathing, preparing meals, shopping, managing finances, etc.?: No Are you currently unemployed and looking for a job?: No Are you interested in more education?: No Please select the resources that you would like help with: None Currently or been in a relationship where the following occur: No concerns reported THRIVE Score: 0 AUDIT C Alcohol Use Questionnaire (AUDIT-C) 1. How often do you have a drink containing alcohol?: Never Total Score: 0 LONNIE-7 AMB Questionnaire LONNIE-7 Date LONNIE - 7 assessed: 12/14/24 Feeling nervous, anxious, or on edge: 0 = Not at all Not being able to stop or control worryin = Not at all Worrying too much about different things: 0 = Not at all Trouble relaxin = Not at all Being so restless that it is hard to sit still: 0 = Not at all Becoming easily annoyed or irritable: 0 = Not at all Feeling afraid as if something awful might happen: 0 = Not at all Total LONNIE-7 score (0-4 normal; 5-9 mild; 10-14 moderate; 15-21 severe): 0 Source: Developed by Kassy Tran Kurt Kroenke and colleagues, with an educational carlos from [employer] LONNIE-7 Assessment Billing LONNIE-7 Assessment Tool: LONNIE-7 Assessment 51251 Review of Systems Const All systems reviewed & are unremarkable except as noted in HPI and below Card Denies chest pain at rest, Denies chest pain with activity, Denies edema, Denies irregular heart rhythm, Denies claudication, Denies dyspnea, Denies dyspnea on exertion, Denies orthopnea and Denies slow heart rate Resp Denies cough, Denies dyspnea and Denies dyspnea on exertion GI Denies abdominal pain, Denies change in bowel habits, Reports constipation, Denies excessive flatus, Denies nausea and Denies vomiting Denies urinary incontinence, Denies urinary hesitancy and Denies urinary urgency Physical exam (Primary Care) Vital Signs: Last Vital Signs BP 122/80 12/29/24 08:36 BMI result Body Mass Index 26.6 Tobacco/Smoking Status: Tobacco use Status Tobacco use date assessed 12/29/24 12/29/24 08:39 Patient Tobacco Use Status Current everyday Tobacco 12/29/24 08:50 Tobacco use type Cigarette 12/29/24 08:50 e-Cigarette/Vaping Use Never Used 12/29/24 08:50 Are you ready to quit: Yes Tobacco cessation counseling provided: Yes Items discussed: Nicotine replacement and QuitWorks Relapse Prevention: discussed the importance of a supportive environment, disc ussed extending NRT, discussed negative mood or depression after quitting, weight gain after smoking is common and discussed dietary, exercise and/or lifestyle changes Number of minutes spent counselin CPT code: 24771 - 4-10 Minutes PHQ-9: PHQ-9 Score PHQ-9: Total score 3 12/29/24 08:44 Depression Screening Interpretation: Positive Depression Screening Follow-up: Existing condition and Follow-up Visit Requested Thrive Assessment: Date of Thrive Assessment Date Thrive assessed 12/14/24 12/29/24 08:39 Currently or been in a relationship where the following occur: No concerns reported HENMT Head: Yes normal to inspection, Yes normocephalic and Yes atraumatic Ears: external ears normal Eyes General: appearance normal, both eyes and all related structures Eyelids: Yes eyelids normal Conjunctivae: conjunctivae normal Neck Neck: Yes normal visual inspection and Yes supple Resp Effort & Inspection: normal respiratory effort Auscultation: clear to auscultation bilaterally Cardio Jugular venous distension: no JVD Rate: regular rate Rhythm: regular rhythm Heart sounds: S1 normal heart sound present and S2 normal heart sound present GI Inspection: Yes normal to inspection Palpation (GI): Soft to palpation and nontender Auscultation: normal bowel sounds Skin General skin exam: no rashes or lesions noted Neuro General: no focal motor deficits Extrem General: Yes full ROM Psych Appearance: grossly normal Coding Level of Care Code Est Pt Level 3 (18966) Est Pt Prev Care 18-39y(03665) Diagnoses Physical exam Z00.00 Constipation by delayed colonic transit K59.01 Smoker F17.200 Additional Codes LONNIE-7 Assessment Billing - LONNIE-7 Assessment Tool: LONNIE-7 Assessment 57206 ([id number]) PHQ-9 - 20057 - PHQ-9 Billing: Yes ([id number]) Vital Signs *Quality* - CPT code: 58971 - 4-10 Minutes ([id number]) Time Spent (min) 38 Assessment & Plan Assessment & Plan (1) Physical exam: Code(s): Z00.00 - Encounter for general adult medical examination without abnormal findings Category: Medical (2) Constipation by delayed colonic transit: Code(s): K59.01 - Slow transit constipation Category: Medical (3) Smoker: Code(s): F17.200 - Nicotine dependence, unspecified, uncomplicated Category: Social Hx Plan - Start Chantix 0.5 mg once daily for first three days, advancing to twice daily: - Provide a work clearance letter following a recent Influenza A infection. - Refill polyethylene glycol (MiraLax) as requested by the patient. - Monitor liver function, with a follow-up on the elevated bilirubin level with the Gastroenterology department. - Continue with vitamin D supplementation if needed based on new laboratory data. Patient was informed and verbally consented to the use of an ambient scribe for clinic note documentation during this visit. I discussed with the patient her recent positive result for Influenza A, advising her to remain on work leave for seven days post-exposure per workplace guidelines. I suggested Chantix for smoking cessation, explaining its higher success rate compared to other therapies, while discussing its typical side effects, including rare neuropsychiatric effects. The patient exhibited understanding and willingness to proceed. I clarified the need for refilling MiraLax and reaffirmed the ongoing management for elevated bilirubin with GI follow-up. Lastly, I ensured the patient was well-informed about health maintenance schedules for vaccines and future Pap smears. Medications: New docusate sodium 100 mg PO DAILY 90 caps 0RF 90 days varenicline tartrate take 1 tablet by mouth daily on days 1-3; then 1 tablet twice daily (morning and evening) on days 4-7 0.5 mg PO DIRECTED 7 tabs 0RF 7 days varenicline tartrate 1 mg PO BID 56 tabs 1RF 28 days Refilled polyethylene glycol 3350 17 grams PO BID PRN 850 grams 6RF constipation 25 days Patient Instructions: - Start Chantix with guidance; adhere to prescribed dosages. - Follow-up with Gastroenterology for the elevated bilirubin evaluation. - Continue vitamin D as prescribed, monitor levels regularly. - Return to work with provided clearance post-flu recovery. - Stay updated with vaccination schedules as advised. - If any new symptoms arise or existing conditions worsen, seek medical attention promptly.
--- OUTSIDE RECORDS SUMMARY | 2024-12-29 08:41 | XMS_ITS | Clinical Summary ---
Author Organization [id number] [facility] Address [address] [place] [address] Care Team Providers Care Sizing Machine Tender Name Role Phone Unavailable Primary Care Provider Unavailabl e Medications No known medications Active Problems Problem Noted Date Diagnosed Date Periodontal disease 08/30/2024 Dental calculus 08/30/2024 Dental caries 08/30/2024 Missing teeth, acquired 08/30/2024 Gingival bleeding 08/30/2024 Localized gingival recession 08/30/2024 Acute gingival inflammation 08/30/2024 Encounters Date Type Department Care Team Description 11/14/2024 Telephone [facility]ULT D[facility] [address] [place] [address] Bethany Mahan 11/11/2024 Telephone [facility] D[facility] [address] [place] [address] Peter San, MARIA DEL CARMEN cx needs [...] Mass Index - - Plan of Treatment Upcoming Encounters Date Type Department Care Team (Late st Contact Info) Description 01/06/2025 9:00 AM EST Office Visit [facility] [address] [place] [address] [facility] Mahan [address] [facility] [place] [address] 01/13/2025 8:00 AM EST Office Visit [facility] [address] [facility] [place] [address] Beverly Frost, DDS [address] [facility] [place] [address] 01/23/2025 9:00 AM EST Office Visit [facility] [address] [facility] [place] [address] Bethany Mahan [address] [place] [address] Health Maintenance Due Date Last Done Comments Depression Screening 1987 HIV Screening 1987 Lipid Panel 1987 SDOH Screening 1987 Alcohol/Substance Use Screening 1999 Family Planning (PISQ) 2002 Hepatitis C Screening 2005 Hepatitis B Vaccines (1 of 3 - 19+ 3-dose series) 2006 Pneumococcal Vaccine: Pediatrics (0 to 5 Years) and At-Risk Patients (6 to 49) Years) (1 of 2 - PCV) 2006 Pap Smear 2008 Cervical Cancer Screening 2017 HPV/Cotest 2017 COVID-19 Vaccine ( - season) 2024 02/20/2022, 04/25/2021 Influenza Vaccine [...] Most Recently Relevant to Health Maintenance Insurance [facility] MEDICAID STAND ADULT * Guarantor: Jacquelyn Abrams Account Type Relation to Patient Date of Phone Billing Address Personal/Family Self [address] [place] [address] * Guarantor: Jacquelyn Abrams Account Type Relation to Patient Date of Phone Billing Address Personal/Family Self [address] [place] [address] * Guarantor: Jacquelyn Abrams Account Type Relation to Patient Date of Phone Billing Address Personal/Family Self [address] [place] [address] * Guarantor: Jacquelyn Abrams Account Type Relation to Patient Date of Phone Billing Address Personal/Family Self [address] [place] [address]"
--- OUTSIDE RECORDS SUMMARY | 2024-12-29 08:41 | XMS_ITS | Encounter Summary ---
Author Organization [facility] Address [address] [place] [address] Care Team Providers Care Drapery Counselor Name Role Phone Unavailable Primary Care Provider Unavailabl e Encounter Details Date Type Department Care Team (Latest Contact Info) Description 09/12/2020 Abstract [facility] CONVERSIONS Dental, Provider, DDS Social History [...] as of this encounter Plan of Treatment Upcoming Encounters Date Type Department Care Team (Late st Contact Info) Description 01/06/2025 9:00 AM EST Office Visit [facility] ADULT DENTAL [address] [place] [address] Negrito, Bethany [address] [place] [address] 01/13/2025 8:00 AM EST Office Visit [facility] ADULT DENTAL [address] [place] [address] Thornton-Panda, Beverly, DDS [address] [place] [address] 01/23/2025 9:00 AM EST Office Visit [facility] ADULT DENTAL [address] [place] [address] Negrito, Bethany [address] [place] [address] documented as of this encounter Visit Diagnoses Not on filedocumented in this encounter
--- OUTSIDE RECORDS SUMMARY | 2024-12-29 08:41 | XMS_ITS | Encounter Summary ---
Author Organization [employer] [facility] Address [address] [place] [address] Care Team Providers Care Interventional Cardiologist Name Role Phone Unavailable Primary Care Provider Unavailabl e Reason for Visit * Reason Onset Date Comments cx needs to rs 11/11/2024 Encounter Details Date Type Department Care Team (Late st Contact Info) Description 11/11/2024 Telephone [facility] ADULT DENTAL [address] [place], [place] [phone] Peter San DMD [address] [place], [place] [phone] cx needs to rs Social History Tobacco [...] documented in this encounter Plan of Treatment Upcoming Encounters Date Type Department Care Team (Late st Contact Info) Description 01/06/2025 9:00 AM EST Office Visit [facility] ADULT DENTAL [address] [place], [place] [phone] Bethany Mahan [address] [place], [place] [phone] 01/13/2025 8:00 AM EST Office Visit [facility] ADULT DENTAL [address] [place] [address] Beverly Frost, NISREENS [address] [place] [address] 01/23/2025 9:00 AM EST Office Visit [facility] ADULT DENTAL [address] [place] [address] Bethany Mahan [address] [place] [address] documented as of this encounter Visit Diagnoses Not on filedocumented in this encounter
--- OUTSIDE RECORDS SUMMARY | 2024-12-29 08:41 | XMS_ITS | Encounter Summary ---
Author Organization [facility] Address [address] [place] [address] Care Team Providers Care Regional Education Coordinator Name Role Phone Unavailable Primary Care Provider Unavailabl e Encounter Details Date Type Department Care Team (Latest Contact Info) Description 07/10/2022 Abstract [facility] CONVERSIONS Dental, Provider, DDS Social History Tobacco [...] Description 01/06/2025 9:00 AM EST Office Visit [facility] ADULT DENTAL [address] [place] [address] Negrito, Bethany [address] [place] [address] 01/13/2025 8:00 AM EST Office Visit [facility] ADULT DENTAL [address] [place] [address] Thornton-Panda, Beverly, DDS [address] [place] [address] 01/23/2025 9:00 AM EST Office Visit [facility] ADULT DENTAL [address] [place] [address] Negrito, Bethany [address] [place] [address] documented as of this encounter Visit Diagnoses Not on filedocumented in this encounter
== END 2024-12-29 08:59 | disposition home or self-care (01) ==
PROVIDERS: PCP Internal Medicine; Visit Provider Internal Medicine
DX: Z00.00 Encounter for general adult medical examination without abnormal findings (principal); K59.01 Slow transit constipation; F17.210 Nicotine dependence, cigarettes, uncomplicated

== ENCOUNTER → 2024-12-29 08:29 | Outpatient (BNVA) | payer OTHER, SELFPAY | PROVIDERS: PCP Internal Medicine; Visit Provider Internal Medicine | DX: Z00.00 Encounter for general adult medical examination without abnormal findings (principal); K59.01 Slow transit constipation; F17.200 Nicotine dependence, unspecified, uncomplicated; Z71.6 Tobacco abuse counseling | CPT/HCPCS: 96127; 99212; 99395 ==

== ENCOUNTER 2025-03-02 09:56 | Outpatient (REF) | payer OTHER, SELFPAY ==
--- NOTE | ~2025-03-02 | FL_ITS ---
EXAMINATION: XR GI SERIES CLINICAL INFORMATION: Gastric pain COMPARISON: None available. TECHNIQUE: Routine upper GI air contrast study was performed in upright and lying supine and prone views. FINDINGS: Following oral administration of thick barium and effervescent granules there is normal propagation bolus from the oral cavity through the pharynx, esophagus into stomach without any evidence of obstruction, narrowing or stricture. No extrinsic compression seen. On placing patient in supine and prone lying the course, caliber and peristalsis of the stomach, duodenum bulb and CBD is normal. There is moderate gastric secretions seen. The mucosal pattern of the stomach and the duodenal bulb is normal. No gastroesophageal reflux or hiatal hernia seen. FLUOROSCOPY TIME: 2 minutes 23 seconds DOSE AREA PRODUCT: 1700 uGy-m2 (microgray-meter squared) FL/FL upper GI series IMPRESSION: Increased gastric secretions likely hyper acidity. No gastroesophageal reflux or hiatal hernia. Electronically signed by: Marcelo Vargas MD 03/02/2025 01:14 PM EDT
--- OUTSIDE RECORDS SUMMARY | 2025-03-02 11:27 | XMS_ITS | Clinical Summary ---
Author Organization [facility] Address [address] [place] [address] Care Team Providers Care Specialist Field Engineer Name Role Phone Ish Jacobson MD Primary Care Provider Unavailabl e Allergies No known active allergies Medications Medication Sig Dispensed Refills Start Date End Date Status metronidazole (METROGEL VAGINAL) 0.75 % vaginal gelIndications:Bacte rial vaginosis 1 applicator full nightly for 5 nights 1 Tube 0 03/06/2020 Active oxycodone (ROXICODONE) 5 MG immediate release tablet Take one tab PO q 4-6 hours prn moderate pain 5 Tab 0 03/22/2020 Active ibuprofen (ADVIL,MOTRIN) 600 MG tablet Take 1 Tab by mouth every 6 hours as needed for Pain for up to 30 days. 60 Tab 1 03/22/2020 Active misoprostol (CYTOTEC) [address] 2 tabs PV and take 2 tabs PO 4 Tab 0 03/22/2020 Active ondansetron (ZOFRAN) 4 MG tablet Take 1 Tab by mouth every 8 hours as needed for Nausea for up to 7 days. 30 Tab 0 03/22/2020 Active Active Problems Problem Noted Date Smoker 03/06/2020 Last Assessment & Plan: Quit with . Pelvic pain in 03/06/2020 Last Assessment & Plan: No evidence of acute abdomen or adnexal mass, but will send for US to confirm no mass. Bacterial vaginosis 03/06/2020 Last Assessment & Plan: Treated with Metrogel given she is nauseated and vomiting at a baseline. Nausea and vomiting in prior t o 22 weeks gestation 03/06/2020 Last Assessment & Plan: Encouraged to use B6 Q8 hours 25 mg and add Unisom nightly 1/2 tab. Push fluids. Call if not improving. Comments Yes Family History Medical History Relation Name Comments ovarian ca Other mat aunt,55 [place] Breast Negative Hx CA Colon Negative Hx CA Prostate Negative Hx CA of Pancreas Negative Hx Uterine Cancer Negative Hx Relation Name Status Comments Other mat aunt,55 Alive Social History Tobacco Use Types Packs/Day Years Used Date Smoking Tobacco: Former Smokeless Tobacco: Never Alcohol Use Standard Drinks/Week Comments No 0 (1 standard drink = 0.6 oz pur e alcohol) Alcohol Habits Answer Date Recorded How often do you have a drink containing alcohol ? Never 03/06/2020 How many drinks containing a lcohol do you have on a typical day when you are drinking? Not asked How often do you have six or more drinks on one occasion? Not asked Comments Yes Sex Assigned at Date Recorded Not on file Last Filed Vital Signs Vital Sign Reading Time Taken Comments Blood Pressure 107/67 03/22/2020 8:41 AM EDT Pulse 83 03/22/2020 8:41 AM EDT Temperature - - Respiratory Rate 16 03/06/2020 9:16 AM EDT Oxygen Saturation - - Inhaled Oxygen Concentration - - Weight 57.7 kg (127 lb 3.2 oz) 03/22/2020 8:41 A M EDT Height 152.4 cm (5') 03/22/2020 8:41 AM EDT Body Mass Index 24.84 03/22/2020 8:41 AM EDT Plan of Treatment Health Maintenance Due Date Last Done Comments Covid-19 Vaccine (#1) 1987 BASELINE HEALTH EXAM 18-39 2006 DTAP/TDAP/TD (1 - Tdap) 2006 CHOLESTEROL SCREENING 2007 CERVICAL CANCER SCREENING 2008 DEPRESSION SCREENING/FOLLOWUP 11/23/2024 SOCIAL NEEDS SCREENING 11/23/2024 INFLUENZA (Season Ended) 2025 PNEUMOCOCCAL VACCINE FOR HIGH RISK PATIENTS (#1) 06/25 Care Teams Specialist Field Engineer Relationship Specialty Start Date End Date Ish Jacobson MD PCP - General Internal Medicine 03/06/20
--- OUTSIDE RECORDS SUMMARY | 2025-03-02 11:27 | XMS_ITS | Encounter Summary ---
Author Organization [facility] [facility] Address [address] [place] [address] Care Team Providers Care Direct Mail Manager Name Role Phone Unavailable Primary Care Provider Unavailabl e Encounter Details Date Type Department Care Team (Latest Contact Info) Description 09/12/2020 Abstract [facility] CONVERSIONS Dental, Provider, DDS Social History Tobacco [...] Care Team (Late st Contact Info) Description 05/16/2025 9:00 AM EDT Office Visit [facility] ADULT DENTAL [address] [place] [address] Bethany Mahan [address] [place] [address] documented as of this encounter Visit Diagnoses Not on filedocumented in this encounter
--- OUTSIDE RECORDS SUMMARY | 2025-03-02 11:27 | XMS_ITS | Encounter Summary ---
Author Organization [employer] [facility] Address [address] [place] [address] Care Team Providers Care System Software Developer Name Role Phone Unavailable Primary Care Provider Unavailabl e Encounter Details Date Type Department Care Team (Latest Contact Info) Description 07/10/2022 Abstract [facility] CONVERSIONS Dental, Provider, DDS Social History [...] Description 05/16/2025 9:00 AM EDT Office Visit [facility] ADULT DENTAL [address] [place] [address] Bethany Mahan [address] [place] [address] documented as of this encounter Visit Diagnoses Not on filedocumented in this encounter
--- OUTSIDE RECORDS SUMMARY | 2025-03-02 11:27 | XMS_ITS | Clinical Summary ---
Author Organization [facility] Address [address] [place] [address] Care Team Providers Care Environmental Coordinator Name Role Phone Unavailable Primary Care Provider Unavailabl e Allergies No known active allergies Medications No known medications Active Problems Problem Noted Date Diagnosed Date Periodontal disease 08/30/2024 Dental calculus 08/30/2024 Dental caries 08/30/2024 Missing teeth, acquired 08/30/2024 Gingival bleeding 08/30/2024 Localized gingival recession 08/30/2024 Acute gingival inflammation 08/30/2024 Encounters Date Type Department Care Team Description 02/10/2025 9:00 AM EDT Office Visit [facility] ADULT DENTAL [address] [place] [address] Negrito, Bethany Dental calculus (Primary Dx); Periodontal disease; Missing teeth, acquired; Localized gingival recession 01/23/2025 11:00 AM EST Office Visit [facility] ADULT DENTAL [address] [place] [address] Thornton-Panda, Beverly, DDS Tooth samaritan unsatisfactory (Primary Dx) 01/23/2025 9:00 AM EST Office Visit [facility] ADULT DENTAL [address] [place] [address] Negrito, Bethany Dental calculus (Primary Dx); Periodontal disease 01/13/2025 8:00 AM EST Office Visit [facility] ADULT DENTAL [address] [place] [address] Thornton-Panda, Beverly, DDS Dental caries (Primary Dx) from Last 3 Months Social History Tobacco Use Types Packs/Day Years Used Date Smoking Tobacco: Former Cigarettes Passive Smoke Exposure: Past Smokeless Tobacco: Never Tobacco Cessation:Counseling Given: Not Answered Comments Unknown Sex and Gender Information Value Date Recorded Sex Assigned at Female 09/22/2022 10:17 AM EDT Legal Sex Female 10:17 AM EDT Gender Identity Female 09/22/2022 10:17 AM EDT Sexual Orientation Straight 09/22/2022 10 :17 AM EDT Last Filed Vital Signs Vital Sign Reading Time Taken Comments Blood Pressure 116/70 02/10/2025 9:14 AM EDT Pulse - - Temperature - - Respiratory Rate - - Oxygen Saturation - - Inhaled Oxygen Concentration - - Weight - - Height - - Body Mass Index - - Plan of Treatment Upcoming Encounters Date Type Department Care Team (Late st Contact Info) Description 05/16/2025 9:00 AM EDT Office Visit [facility] ADULT DENTAL [address] [place] [address] Negrito, Bethany [address] [place] [address] Health Maintenance Due Date Last Done Comments Depression Screening 1987 HIV Screening 1987 SDOH Screening 1987 Alcohol/Substance Use Screening 1999 Family Planning (PISQ) 2002 Hepatitis C Screening 2005 Hepatitis B Vaccines (1 of 3 - 19+ 3-dose series) 2006 Pap Smear 2008 Cervical Cancer Screening 2017 HPV/Cotest 2017 COVID-19 Vaccine ( season) 2024 02/20/2022, 04/25/2021 Influenza Vaccine (#1) 2024 , 11/12/2020, 11/26/2018 Dental Oral Exam 03/01/2025 08/30/2024, , 09/12/2020, Additional history exists Dental Prophylaxis 03/01/2025 08/30/2024, 0 07/10/2022, 04/30/2021, Additional history exists Dental X-Ray: Bitewings 01/24/2026 01/24/20 25, 08/30/2024, 07/10/2022, Additional history exists Tobacco Screening 02/10/2026 02/10/2025 Dental X-Ray: Full Mouth 08/31/2027 024, 01/13/2020, [...] on patient's age to complete this topic Pneumococcal Vaccine: Pediatrics (0 to 5 Years) and At-Risk Patients (6 to 49) Years) Aged Out No longer eligible based on patient's age to complete this topic RSV under 20 months Aged Out No longe r eligible based on patient's age to complete this topic Rotavirus Vaccines Aged Out No longer eligible based on patient's age to complete this topic Procedures Procedure Name Priority Date/Time Associated Diagnosis Comments CASE PRESENTATION, DETAILED AND EXTENSIVE TREATMENT PLANNING Routine 02/10/2025 9:00 AM EDT Dental calculus Periodontal disease Missing teeth, acquired Localized gingival recession ORAL HYGIENE INSTRUCTIONS Routine 02/10/2025 9:00 AM EDT Dental calculus Periodontal disease Missing teeth, acquired Localized gingival recession LR PERIODONTAL SCALING AND ROOT PLANING - 4 OR MORE TEETH PER QUADRANT Routine 02/10/2025 9:00 AM EDT Dental calculus Periodontal disease Missing teeth, acquired Localized gingival recession UR PERIODONTAL SCALING AND ROOT PLANING - 4 OR MORE TEETH PER QUADRANT Routine 02/10/2025 9:00 AM EDT Dental calculus Periodontal disease CASE PRESENTATION, DETAILED AND EXTENSIVE TREATMENT PLANNING Routine 01/23/2025 11:00 AM EST Tooth samaritan unsatisfactory 2,3,4 LIMITED ORAL EVALUATION - PROBLEM FOCUSED Routine 01/23/2025 11:00 AM EST Tooth samaritan unsatisfactory INTRAORAL - PERIAPICAL FIRST RADIOGRAPHIC IMAGE Routine 01/23/2025 11:00 AM EST Tooth samaritan unsatisfactory BITEWING - SINGLE RADIOGRAPHIC IMAGE Routine 01/23/2025 11:00 AM EST Tooth samaritan unsatisfactory CASE PRESENTATION, DETAILED AND EXTENSIVE TREATMENT PLANNING Routine 01/23/2025 9:00 AM EST Dental calculus Periodontal disease ORAL HYGIENE INSTRUCTIONS Routine 01/23/2025 9:00 AM EST Dental calculus Periodontal disease LL PERIODONTAL SCALING AND ROOT PLANING - 4 OR MORE TEETH PER QUADRANT Routine 01/23/2025 9:00 AM EST Dental calculus Periodontal disease UL PERIODONTAL SCALING AND ROOT PLANING - 4 OR MORE TEETH PER QUADRANT Routine 01/23/2025 9:00 AM EST Dental calculus Periodontal disease CASE PRESENTATION, DETAILED AND EXTENSIVE TREATMENT PLANNING Routine 01/13/2025 8:00 AM EST Dental caries 3 DO RESIN-BASED COMPOSITE - 2 SURF, POSTERIOR Routine 01/13/2025 8:00 AM EST Dental caries 4 DO RESIN-BASED COMPOSITE - 2 SURF, POSTERIOR Routine 01/13/2025 8:00 AM EST Dental caries PROPHYLAXIS - ADULT Routine 08/30/2024 1 1:00 AM EDT Periodontal disease Dental calculus Dental caries Gingival bleeding INTRAORAL - COMPLETE SERIES OF RADIOGRAPHIC IMAGES Routine 08/30/2024 11:00 [...] Recently Relevant to Health Maintenance Insurance [address] [place] [id number] [facility] * Guarantor: Jacquelyn Abrams Account Type Relation to Patient Date of Phone Billing Address Personal/Family Self [address] [place] [address] * Guarantor: Jacquelyn Abrams Account Type Relation to Patient Date of Phone Billing Address Personal/Family Self [address] [place] [address] * Guarantor: Jacquelyn Abrams Account Type Relation to Patient Date of Phone Billing Address Personal/Family Self [address] [place] [address]
--- OUTSIDE RECORDS SUMMARY | 2025-03-02 11:27 | XMS_ITS | Encounter Summary ---
Author Organization [employer] [facility] Address [address] [place] [address] Care Team Providers Care Customs Compliance Manager Name Role Phone Unavailable Primary Care Provider Unavailabl e Reason for Visit * Reason Onset Date Comments cx needs to rs 11/11/2024 Encounter Details Date Type Department Care Team (Late st Contact Info) Description 11/11/2024 Telephone [facility] ADULT DENTAL [address] [place], [place] [phone] Peter San DMD [address] [place], [place] [phone] cx needs to rs Social History Tobacco [...] Description 05/16/2025 9:00 AM EDT Office Visit [facility] ADULT DENTAL [address] [place], [place] [phone] Bethany Mahan [address] [place] [address] documented as of this encounter Visit Diagnoses Not on filedocumented in this encounter
== END 2025-03-02 09:57 | disposition home or self-care (01) ==
LOC: HO.XRAY 09:56
PROVIDERS: PCP Internal Medicine; Visit Provider Internal Medicine
DX: R10.13 Epigastric pain (principal)
CPT/HCPCS: 74240

== ENCOUNTER → 2025-03-02 10:54 | Outpatient (BNV) | payer OTHER, SELFPAY | PROVIDERS: PCP Internal Medicine; Visit Provider Radiology Diagnostic Radiology | DX: R10.13 Epigastric pain (principal) | CPT/HCPCS: 74246 ==